=== PATIENT | male | born 1955 | race Caucasian/White ===

== ENCOUNTER 2016-10-19 22:25 | Inpatient (IN) | payer OTHER ==
[~2016-10-19] VITALS: Ht 175.3 cm; Wt 76.9 kg
--- NOTE | 2016-10-19 22:31 | ERA ---
ER Documentation Chief Complaint Date/Time DATE: 10/19/16 TIME: 22:31 Chief Complaint Altered level of consciousness HPI The patient is a 61 years old male, presenting to the ER because of acute altered level of consciousness, recognized by the family around 7 PM. He only knows his name. There was no trauma according to the family. He has not been sick recently. History is obtained from the family. He does not smoke, drink, does not any illegal drug according to the family Past medical history: Hypothyroidism, gastritis Past surgical history: Appendectomy ROS All systems reviewed and are negative except as per history of present illness. Medications Home Meds Reported Medications Levothyroxine Sodium* (Levothyroxine Sodium*) 88 Mcg Tablet, 88 MCG PO BEFORE BREAKFAST, #30 TAB 10/20/16 Omeprazole* (Omeprazole*) 40 Mg Capsule., 40 MG PO BID, #30 CAP 10/19/16 Discontinued Reported Medications Levothyroxine Sodium* (Levothyroxine Sodium*) 75 Mcg Tablet, 75 MCG PO BEFORE BREAKFAST, #30 TAB CHANGED 75MCG TO 88MCG 10/19/16 Allergies Allergies: Coded Allergies: No Known Allergy (Unverified , 10/19/16) Physical Exam Vitals Vital Signs Date Time Temp Pulse Resp B/P Pulse Ox O2 Delivery O2 Flow Rate FiO2 10/20/16 00:38 100 16 122/78 98 Room Air 10/19/16 22:25 98.5 107 18 98/58 99 Physical Exam Const: No acute distress. Dehydrated Head: Atraumatic. Eyes: Normal Conjunctiva. ENT: Normal External Ears, Nose and Mouth. Neck: Full range of motion. No meningismus. Resp: Clear to auscultation bilaterally. Cardio: Regular tachycardic Abd: Soft, non distended, normal bowel sounds, non tender. Skin: No petechiae or rashes. Back: No midline or flank tenderness. Ext: No cyanosis, or edema. Neur: Awake and alert. Limited due to his condition Psych: Limited due to his condition. Result Diagram: 10/19/16221410/19/162214 Results 24 hrs Laboratory Tests Test 10/19/16 22:15 10/19/16 22:42 10/19/16 23:30 10/19/16 23:55 White Blood Count 13.910^3/ul Red Blood Count 5.0110^6/ul Hemoglobin 14.4g/dl Hematocrit 44.8% Mean Corpuscular Volume 89.4fl Mean Corpuscular Hemoglobin 28.7pg Mean Corpuscular Hemoglobin Concent 32.1g/dl Red Cell Distribution Width 13.8% Platelet Count 73585^3/UL Mean Platelet Volume 10.4fl Neutrophils % 66.6% Lymphocytes % 27.9% Monocytes % 4.0% Eosinophils % 0.4% Basophils % 0.3% Nucleated Red Blood Cells % 0.0/100WBC Neutrophils # 9.310^3/ul Lymphocytes # 3.910^3/ul Monocytes # 0.610^3/ul Eosinophils # 0.110^3/ul Basophils # 0.010^3/ul Nucleated Red Blood Cells # 0.010^3/ul Prothrombin Time 13.3Sec Prothrombin Time Ratio 1.0 INR International Normalized Ratio 1.01 Activated Partial Thromboplast Time 27.2Sec Sodium Level 143mmol/L Potassium Level 3.1mmol/L Chloride Level 103mmol/L Carbon Dioxide Level 14mmol/L Anion Gap 29 Blood Urea Nitrogen 16mg/dl Creatinine 1.10mg/dl Glucose Level 193mg/dl Calcium Level 9.2mg/dl Total Bilirubin 0.2mg/dl Direct Bilirubin 0.00mg/dl Indirect Bilirubin 0.2mg/dl Aspartate Amino Transf (AST/SGOT) 22IU/L Alanine Aminotransferase (ALT/SGPT) 17IU/L Alkaline Phosphatase 73IU/L Troponin I < 0.012ng/ml Total Protein 8.4g/dl Albumin 4.9g/dl Globulin 3.50g/dl Albumin/Globulin Ratio 1.40 Thyroid Stimulating Hormone (TSH) 2.630MIU/L Salicylates Level < 1.0mg/dl Acetaminophen Level < 10.0ug/ml Ethyl Alcohol Level < 10.0mg/dl Bedside Glucose 153mg/dL Lactic Acid Level 2.9mmol/L Urine Color LT. YELLOW Urine Clarity CLEAR Urine pH 5.5 Urine Specific [place] >=1.030 Urine Ketones 15 Urine Nitrite NEGATIVE Urine Bilirubin NEGATIVE Urine Urobilinogen 0.2 E.U./dL Urine Leukocyte Esterase NEGATIVE Urine Hemoglobin NEGATIVE Urine Glucose NEGATIVE% Urine Total Protein NEGATIVE Urine Opiates Screen Negative Urine Barbiturates Negative Urine Amphetamines Screen Negative Urine Benzodiazepines Screen Negative Urine Cocaine Screen Negative Urine Cannabinoids Negative Test 10/20/16 00:40 Lactic Acid Level 2.7mmol/L Current Medications Medications (Trade) Dose Ordered Sig/Marino Route PRN Reason Start Time Stop Time Status Last Admin Dose Admin Sodium Chloride 1,000 ml @ 1,000 mls/hr Q1H ONCE IV 10/19/16 23:00 10/19/16 23:59 DC 10/19/16 23:23 Potassium Chloride (KCl 40 MEQ/250 ML NS) 250 ml @ 62.5 mls/hr ONCE ONCE IVPB 10/20/16 00:00 10/20/16 03:59 DC 10/20/16 01:26 Procedures/MDM [place] [address] Radiology Main Line: [phone] DIAGNOSTIC IMAGING REPORT Patient: LUDWIN MACEDO : 1955 Age: 61 Sex: M MR #: [id number] DOS: 10/19/162236 Ordering MD: OMI PHILLIPS MD Location: E/R Room/Bed: PROCEDURE: XR Chest. CLINICAL INDICATION: Altered mental status. Cough. TECHNIQUE: Single frontal view. COMPARISON: None. FINDINGS: The lungs are clear. The heart size is normal. There is no pleural effusion. There is no pneumothorax. IMPRESSION: 1. Normal chest radiograph. RPTAT: QQ .Pb Ortiz MD, MD Date Time Electronically viewed and signed by .Pb Ortiz MD, on 10/19/2016 23:01 .R/ CC: OMI PHILLIPS MD [place] [address] Radiology Main Line: [phone] DIAGNOSTIC IMAGING REPORT Patient: LUDWIN MACEDO : 1955 Age: 61 Sex: M MR #: [id number] DOS: 10/19/162236 Ordering MD: OMI PHILLIPS MD Location: E/R Room/Bed: PROCEDURE: CT head without Contrast CLINICAL INDICATION: Altered mental status TECHNIQUE: Transaxial images were made through the head on a multi-slice scanner without intravenous contrast. Coronal and sagittal images were subsequently reformatted. One or more of the following dose reduction techniques were used: - Automated exposure control. - Adjustment of the mA and/or kV according to patient size. - Use of iterative reconstruction technique. Radiation dose: CTDIvol = 40.21 mGy; DLP = 7 near 68.27 mGy-cm. COMPARISON: None FINDINGS: The calvarium appears intact. The mastoid air cells and paranasal sinuses are well-aerated.. The ventricles are normal in size and there is no midline shift. At the floor of the left frontal lobe there is a 2.5 x 2.4 x 2.3 cm nodular density with surrounding edema. No intracranial bleed or extraaxial fluid collection is evident. IMPRESSION: 1. There is a 2.5 x 2.4 x 2.3 cm nodular density with surrounding edema seen at the floor of the left frontal lobe suspicious for a mass. 2. There is no significant midline shift. 3. No intracranial bleed or extraaxial fluid collection is evident. 4. Correlation with an MRI with and without gadolinium is recommended to further evaluate. Findings of nodular mass with surrounding edema in floor of left frontal lobe were telephoned by Mason Betancourt MD to Dr. Phillips on 10/19/2016 at 2328 hours. Physician Nik Date Time Electronically viewed and signed by Physician Nik on 10/19/2016 23:33 RH/ CC: OMI PHILLIPS MD EKG: Read by emergency physician Rate/Rhythm: Sinus tachycardia 104 beats/min QRS, ST, T-waves: No ST elevation, no T inversion Impression: Abnormal EKG MEDICAL MAKING DECISION: The patient is a 61-year-old male, presenting with acute on the level of consciousness, most likely due to acute brain mass, acute hypokalemia, acute elevated lactic acid level of unclear significance. I do not suspect sepsis in the patient, he was treated with 1 L normal saline for clinical dehydration, 40 mEq potassium chloride IV for low potassium, Decadron 10 mg IV due to acute brain mass with surrounding edema recommended by neurosurgeon Dr. angel The differential diagnoses considered include but are not limited to medication non-compliance, alcohol intoxication or withdrawal, drug intoxication or withdrawal, endocrine disorder, trauma, CVA, tumor, metabolic encephalopathy, septic encephalopathy. Departure Diagnosis: Primary Impression: Brain mass Additional Impressions: Hypokalemia Elevated lactic acid level Condition: Stable Comments Consultation: I discussed the patient with the on-call neurosurgeon Dr. angel , who was made aware of the lab, the patient condition. He accepted the consult at 1255 am I discussed the findings with the patient. I discussed the patient with the on- call hospitalist Dr. Cotton who was made aware of the lab, the treatment, the patient condition. The patient is admitted to telemetry at 1:05 am OMI PHILLIPS MD Oct 19, 2016 22:31
[2016-10-19 22:57] LABS: ADD SCAN DIFF NO
[2016-10-19] MEDS ORDERED: LEVO75TA5 PO (22:57)
[2016-10-19] MEDS ORDERED: SOD CHLORIDE 0.9% 1,000 ML IV ONE (23:00)
--- NOTE | 2016-10-19 23:01 | RADRPT ---
PROCEDURE: XR Chest. CLINICAL INDICATION: Altered mental status. Cough. TECHNIQUE: Single frontal view. COMPARISON: None. FINDINGS: The lungs are clear. The heart size is normal. There is no pleural effusion. There is no pneumothorax. IMPRESSION: 1. Normal chest radiograph. RPTAT: QQ .Pb Ortiz MD, MD Date Time Electronically viewed and signed by .Pb Ortiz MD, on 10/19/2016 23:01 .R/
[2016-10-19 23:02] LABS: BASOPHILS % 0.3 % (0.0-2.0); EOSINOPHILS # 0.1 10^3/ul (0.0-0.5); EOSINOPHILS % 0.4 % (0.0-7.0); HEMATOCRIT 44.8 % (42.0-52.0); HEMOGLOBIN 14.4 g/dl (14.0-18.0); LYMPHOCYTES # 3.9 10^3/ul (0.8-2.9); LYMPHOCYTES % 27.9 % (15.0-51.0); MEAN CORPUSCULAR HEMOGLOBIN 28.7 pg (29.0-33.0); MEAN CORPUSCULAR HGB CONC 32.1 g/dl (32.0-37.0); MEAN CORPUSCULAR VOLUME 89.4 fl (82.0-101.0); MEAN PLATELET VOLUME 10.4 fl (7.4-10.4); MONOCYTE # 0.6 10^3/ul (0.3-0.9); NEUTROPHIL # 9.3 10^3/ul (1.6-7.5); NEUTROPHILS % 66.6 % (39.0-77.0); PLATELET COUNT 339 10^3/UL (140-415); RED BLOOD COUNT 5.01 10^6/ul (4.70-6.10); RED CELL DISTRIBUTION WIDTH 13.8 % (11.5-14.5); WHITE BLOOD COUNT 13.9 10^3/ul (4.8-10.8)
[2016-10-19] MEDS ORDERED: OMEP40CA6 PO (23:04)
[2016-10-19 23:09] LABS: CHLORIDE 103 mmol/L (97-110); INR 1.01; PROTIME 13.3 Sec (12.2-14.2)
[2016-10-19 23:10] LABS: ALBUMIN 4.9 g/dl (3.3-4.9); PARTIAL THROMBOPLASTIN TIME 27.2 Sec (25.0-35.0); POTASSIUM 3.1 mmol/L (3.5-5.1); SODIUM 143 mmol/L (135-144)
[2016-10-19 23:12] LABS: ANION GAP 29 (8-16); BILIRUBIN,INDIRECT 0.2 mg/dl (0-1.1); BILIRUBIN,TOTAL 0.2 mg/dl (0.2-1.3); CARBON DIOXIDE 14 mmol/L (21-31); TOTAL PROTEIN 8.4 g/dl (6.1-8.1)
[2016-10-19 23:13] LABS: ALANINE AMINOTRANSFERASE 17 IU/L (13-69); ALKALINE PHOSPHATASE 73 IU/L (42-121); ASPARTATE AMINO TRANSFERASE 22 IU/L (15-46); BLOOD UREA NITROGEN 16 mg/dl (7-20); CALCIUM 9.2 mg/dl (8.4-10.2); GLUCOSE 193 mg/dl (70-220)
[2016-10-19 23:16] LABS: ACETAMINOPHEN < 10.0 ug/ml (10.0-30.0); ETHANOL < 10.0 mg/dl; SALICYLATE < 1.0 mg/dl (5.0-30.0)
[2016-10-19 23:31] LABS: TROPONIN-I < 0.012 ng/ml (0.00-0.12)
--- NOTE | 2016-10-19 23:33 | RADRPT ---
PROCEDURE: CT head without Contrast CLINICAL INDICATION: Altered mental status TECHNIQUE: Transaxial images were made through the head on a multi-slice scanner without intraveno us contrast. Coronal and sagittal images were subsequently reformatted. One or more of the following dose reduction techniques were used: - Automated exposure control. - Adjustment of the mA and/or kV according to patient size. - Use of iterative reconstruction technique. Radiation dose: CTDIvol = 40.21 mGy; DLP = 7 near 68.27 mGy-cm. COMPARISON: None FINDINGS: The calvarium appears intact. The mastoid air cells and paranasal sinuses are well-aerated.. The ventricles are normal in size and there is no midline shift. At the floor of the left frontal lobe there is a 2.5 x 2.4 x 2.3 cm nodular density with surrounding edema. No intracranial bleed or extraaxial fluid collection is evident. IMPRESSION: 1. There is a 2.5 x 2.4 x 2.3 cm nodular density with surrounding edema seen at the floor of the le ft frontal lobe suspicious for a mass. 2. There is no significant midline shift. 3. No intracranial bleed or extraaxial fluid collection is evident. 4. Correlation with an MRI with and without gadolinium is recommended to further evaluate. Findings of nodular mass with surrounding edema in floor of left frontal lobe were telephoned by Sherita Betancourt MD to Dr. Tran on 10/19/2016 at 2328 hours. Physician Nik Date Time Electronically viewed and signed by Physician Nik on 10/19/2016 23:33 /
[2016-10-20] VITALS (11 sets, daily range): BP systolic 104–127; BP diastolic 63–88; PULSE 78–97; RESP 18–19; BMI 25.0
[2016-10-20] MEDS ORDERED: POTASSIUM CHLORIDE 250 ML IVPB ONE
[2016-10-20 00:21] LABS: ADD UMIC NO; URINE BILIRUBIN (Dip) NEGATIVE (NEGATIVE); URINE BLOOD (Dip) NEGATIVE (NEGATIVE); URINE COLOR LT. YELLOW (YELLOW); URINE GLUCOSE (Dip) NEGATIVE (NEGATIVE); URINE KETONES (Dip) 15 (NEGATIVE); URINE LEUKOCYTE ESTERASE (Dip) NEGATIVE (NEGATIVE); URINE NITRITE (Dip) NEGATIVE (NEGATIVE); URINE TOTAL PROTEIN (Dip) NEGATIVE (NEGATIVE); URINE UROBILINOGEN (Dip) 0.2 E.U./dL (0.1-1.0)
[2016-10-20] MEDS ORDERED: DEXAMETHASONE 10 MG/ML 1 ML INJ IV ONE (01:00)
[2016-10-20 01:25] LABS: BARBITURATES Negative (NEGATIVE); BENZODIAZEPINES Negative (NEGATIVE); CANNABINOIDS Negative (NEGATIVE); COCAINE Negative (NEGATIVE); OPIATES Negative (NEGATIVE)
[2016-10-20] MEDS ORDERED: LEVO88TA3 PO (03:27)
[2016-10-20] MEDS ORDERED: ONDANSETRON 4 MG INJ IV PRN (03:30)
[2016-10-20] MEDS ORDERED: morphine 10 MG INJ IM PRN (03:30)
[2016-10-20] MEDS ORDERED: ACETAMINOPHEN 325 MG TAB PO PRN (03:30)
[2016-10-20 04:25] LABS: ADD SCAN DIFF NO
[2016-10-20 04:39] LABS: ALBUMIN 3.9 g/dl (3.3-4.9)
[2016-10-20 04:40] LABS: POTASSIUM 4.3 mmol/L (3.5-5.1)
[2016-10-20 04:42] LABS: ALBUMIN/GLOBULIN RATIO 1.21; BILIRUBIN,INDIRECT 0.4 mg/dl (0-1.1); BILIRUBIN,TOTAL 0.4 mg/dl (0.2-1.3); CREATININE 0.81 mg/dl (0.61-1.24); TOTAL PROTEIN 7.1 g/dl (6.1-8.1)
[2016-10-20 04:43] LABS: CALCIUM 8.5 mg/dl (8.4-10.2); MAGNESIUM 2.1 mg/dl (1.7-2.5)
[2016-10-20 04:51] LABS: ABNORMAL IP MESSAGE 1; HEMATOCRIT 37.7 % (42.0-52.0); HEMOGLOBIN 13.1 g/dl (14.0-18.0); MEAN CORPUSCULAR HEMOGLOBIN 29.5 pg (29.0-33.0); MEAN CORPUSCULAR HGB CONC 34.7 g/dl (32.0-37.0); MEAN CORPUSCULAR VOLUME 84.9 fl (82.0-101.0); MEAN PLATELET VOLUME 10.1 fl (7.4-10.4); PLATELET COUNT 267 10^3/UL (140-415); RED BLOOD COUNT 4.44 10^6/ul (4.70-6.10); RED CELL DISTRIBUTION WIDTH 13.3 % (11.5-14.5); WHITE BLOOD COUNT 13.3 10^3/ul (4.8-10.8)
[2016-10-20] MEDS: LEVOTHYROXINE 88 MCG TAB PO SCH (06:05)
[2016-10-20] MEDS: PANTOPRAZOLE (EC) 40 MG TAB PO SCH ×2 (06:05→17:02)
[2016-10-20 06:08] LABS: LYMPHOCYTES # 0.7 10^3/ul (0.8-2.9); MONOCYTE # 0.3 10^3/ul (0.3-0.9); NEUTROPHIL # 12.4 10^3/ul (1.6-7.5)
[2016-10-20 06:09] LABS: PLATELET ESTIMATE PLT APPEAR ADEQUATE
[2016-10-20 06:37] LABS: THYROID STIMULATING HORMONE 1.15 MIU/L (0.465-4.680)
--- NOTE | 2016-10-20 07:39 | HP ---
DATE OF ADMISSION: 10/20/2016 CHIEF COMPLAINT: Altered mentation. HISTORY OF PRESENT ILLNESS: The patient is a 61-year-old male with a history of hypothyroidism, gas tritis, parathyroidectomy who was brought to the ER for altered mentation. Last night it was noted by the family that the patient was acting "odd" and was noted to be altered and not responding to f amily appropriately. They reported that during the day he had been lethargic. No reported history o f alcohol or illicit drug use. The patient currently is oriented to his name only. When he presented to the ER, vitals were stable. CT of the brain shows daily a nodular density with surrounding edema at the floor over the left frontal lobe suspicious for masses and it measures 2.5 x 2.4 x 2.3 cm. There is no significant midline shift and no intracranial bleed or extraaxial flu id collection. The patient was given 10 mg of IV Decadron while he was in the ER and a consult was placed to the Onco-neurosurgeon, Dr. Nguyen. REVIEW OF SYSTEMS: Unable to fully assess. PAST MEDICAL HISTORY: As per HPI. PAST SURGICAL HISTORY: Parathyroidectomy, bilateral knee surgery, cholecystectomy and appendectomy. SOCIAL HISTORY: No tobacco, alcohol or illicit drug use. ALLERGIES: NO KNOWN DRUG ALLERGIES. HOME MEDICATIONS: Prilosec and Synthroid. PHYSICAL EXAMINATION: VITAL SIGNS: Stable. GENERAL: The patient appears sleepy, but arousable, in no acute distress. He is only oriented to h is name. HEENT: No obvious head deformity. Pupils reactive to light. Extraocular muscles intact. CARDIOVASCULAR: Slightly tachycardic with regular rhythm. LUNGS: Clear. ABDOMEN: Soft, nontender, normoactive bowel sounds. EXTREMITIES: No edema. NEUROLOGIC: The patient was oriented to his name and actually location as well. LABORATORY DATA: Potassium 3.1, bicarbonate 14, anion gap 29. WBC 13.9. Otherwise, CBC and CMP ar e within normal limits. IMAGING: Brain CT with results as mentioned in the HPI. Chest x-ray shows clear lungs with no effu charu. IMPRESSION: 1. Newly diagnosed brain mass with surrounding edema. 2. Altered level of consciousness secondary to above. 3. Systemic inflammatory response syndrome, as evidenced by leukocytosis and tachycardia, likely se condary to above. 4. History of hypothyroidism. 5. History of gastritis. 6. History of parathyroidectomy. 7. Anion gap metabolic acidosis. 8. Hypokalemia. PLAN: We will admit to telemetry unit. We will obtain MRI of the brain. He will be placed on Deca dron. Currently he is awaiting a neurosurgery evaluation. Would continue his home medication. Giv en his presentation of SIRS, will do infectious workup by sending blood culture and urine culture. Most likely, however, this is the result of the brain mass and is stress-induced. Further workup and management per clinical course. Dictated By: DK RUBALCAVA/CIRILO Conf#: [id number] DID#: [id number]
[2016-10-20] MEDS: DEXAMETHASONE 4 MG/ML 1 ML INJ IV SCH ×3 (07:58→17:02)
--- NOTE | 2016-10-20 13:04 | RADRPT ---
PROCEDURE: MR Brain without contrast. CLINICAL INDICATION: Brain mass seen on CT. TECHNIQUE: An MRI of the brain was performed without contrast utilizing the following sequences: Sagittal T1 weighted, sagittal FLAIR, axial T1, axial FLAIR, axial T2 weighted, axial diffusion weig hted, axial ADC mapping. Images were reviewed on a PACS workstation. COMPARISON: CT head 10/19/2016 FINDINGS: Diffusion weighted sequences demonstrate no evidence of acute lacunar or lobar infarction. There is a prominent mass lesion involving the left anterior frontal lobe, which is partially evaluated. Th e mass measures at least 3.6 x 2.2 cm, with moderate amount of vasogenic edema. There are subtle ar eas of susceptibility hypointensity involving the anterior portion of the mass (GRE image 26). Ther e is diffusion restriction seen within the mass lesion (axial series image 14). Contrast was not ad ministered for enhancement characteristics. There is moderate regional sulcal effacement. There is trace rightward midline shift at the level of the septum pellucidum measuring 2-3 mm. There is no significant subfalcine herniation. The vasogenic edema is seen extending into the anterior genu of the corpus callosum (axial series image 16). The vasogenic edema does not extend across the corpus callosum. There is mild gyral thickening involving the paramedian left frontal lobe (axial series image 17). There is no intraparenchymal hemorrhage, extra-axial fluid collection or hydrocephalous. There is a baseline of mild prominence of the cerebral sulci, lateral and third ventricles. The basal cisterns are patent. Normal flow voids are visible the proximal intracranial arteries and dural sinuses, in dicating patency. The midline structures are intact. The paranasal sinuses, mastoid air cells and middle ear cavities are normally aerated. The orbits, calvarium and extracranial soft tissues are n ormal in appearance. The cerebellopontine angles are normal. No evidence of internal acoustic canal or cerebellopontine angle mass. IMPRESSION: 1. Prominent mass lesion involving the left anterior frontal lobe measuring at least 3.6 x 2.2 cm, with diffusion restriction and multiple foci of hemorrhage. This is concerning for high-grade neopl asm such as glioblastoma multiforme with other etiologies including lymphoma considered less likely. Postcontrast images are recommended for further evaluation. 2. No intraparenchymal hemorrhage, infarction or hydrocephalous. RPTAT: HGAS .Chun Durham MD, MD Date Time Electronically viewed and signed by .Chun Durham MD, MD on 10/20/2016 13:03 .S/
--- NOTE | 2016-10-20 16:00 | CONS ---
Date/Time of Note Date/Time of Note DATE: 10/20/16 TIME: 15:48 Assessment/Plan Assessment/Plan Chief Complaint/Hosp Course 61 yo male who sustained a witnessed seizure who was found with a prominent mass lesion involving the left anterior frontal lobe measuring at least 3.6 x 2.2 cm, concerning for high-grade neoplasm such as glioblastoma multiforme. -will order CT C/A/P with contrast to evaluate for a primary tumor as this brain lesion could represent metastasis from another organ -f/u Brain MRI with contrast -pt to have brain surgery on Saturday or Saturday. will need to f/u pathology as this will dictate our further plan -continue Decadron and Keppra as ordered Problems: Consultation Date/Type/Reason Admit Date/Time Oct 20, 2016 at 00:44 Date of Consultation: Oct 20, 2016 Type of Consultation: oncology Reason for Consultation brain tumor Referring Provider: XAVIER ALSTON of Present Illness 61 yo male with a past medical history of hypothyroidism who presented to the ER after he had a witnessed seizure lasting 15 min resulting in a fall. Pt was brought into our ER after calling 911. In the ER a CT of the brain was done which demonstrated a nodular density with surrounding edema at the floor over the left frontal lobe suspicious for masses and it measures 2.5 x 2.4 x 2.3 cm. There is no significant midline shift and no intracranial bleed or extraaxial fluid collection. The patient was given 10 mg of IV Decadron while he was in the ER. Given the concern for high grade glioblastoma, neurosurgery was called. pt was scheduled for another MRI with contrast and was told he would have surgery on saturday or Saturday. He currently c/o generalized weakness but no focal deficits. He denies weight loss, fevers, chills, nausea or vomiting ,. Constitutional: no complaints Eyes: no complaints ENT: no complaints Respiratory: no complaints Cardiovascular: no complaints Gastrointestinal: no complaints Genitourinary: no complaints Musculoskeletal: no complaints Skin: no complaints Neurologic: no complaints Endocrine: no complaints Past Medical History Parathyroidectomy, bilateral knee surgery, cholecystectomy and appendectomy. Family History Significant Family History: no pertinent family hx Social History Alcohol Use: none Smoking Status: Former smoker Drug Use: none Exam/Review of Systems Vital Signs Vitals Vital Signs Date Time Temp Pulse Resp B/P Pulse Ox O2 Delivery O2 Flow Rate FiO2 4/1/17 15:03 98.6 89 18 116/71 94 10/20/16 02:06 Room Air Intake and Output 10/19/16 10/19/16 10/20/16 15:00 23:00 07:00 Intake Total 250 ml Balance 250 ml Exam Constitutional: alert, oriented Psych: no complaints Head: atraumatic, normocephalic Eyes: nl conjunctiva ENMT: nl external ears & nose Neck: non-tender, supple Respiratory: clear to auscultation, normal air movement Cardiovascular: nl pulses, regular rate and rhythm Gastrointestinal: soft Musculoskeletal: nl extremities to inspection, nl gait and stance Neurological: RESEARCH AND DEVELOPMENT SCIENTIST II-XII intact Results Result Diagram: 10/20/16 0401 10/20/16 0401 Results 24 hrs Laboratory Tests Test 10/19/16 22:15 10/19/16 22:42 10/19/16 23:30 10/19/16 23:55 White Blood Count 13.9 H Red Blood Count 5.01 Hemoglobin 14.4 Hematocrit 44.8 Mean Corpuscular Volume 89.4 Mean Corpuscular Hemoglobin 28.7 L Mean Corpuscular Hemoglobin Concent 32.1 Red Cell Distribution Width 13.8 Platelet Count 339 Mean Platelet Volume 10.4 Neutrophils % 66.6 Lymphocytes % 27.9 Monocytes % 4.0 Eosinophils % 0.4 Basophils % 0.3 Nucleated Red Blood Cells % 0.0 Neutrophils # 9.3 H Lymphocytes # 3.9 H Monocytes # 0.6 Eosinophils # 0.1 Basophils # 0.0 Nucleated Red Blood Cells # 0.0 Prothrombin Time 13.3 Prothrombin Time Ratio 1.0 INR International Normalized Ratio 1.01 Activated Partial Thromboplast Time 27.2 Sodium Level 143 Potassium Level 3.1 L Chloride Level 103 Carbon Dioxide Level 14 L Anion Gap 29 H Blood Urea Nitrogen 16 Creatinine 1.10 Glucose Level 193 Calcium Level 9.2 Total Bilirubin 0.2 Direct Bilirubin 0.00 Indirect Bilirubin 0.2 Aspartate Amino Transf (AST/SGOT) 22 Alanine Aminotransferase (ALT/SGPT) 17 Alkaline Phosphatase 73 Troponin I < 0.012 Total Protein 8.4 H Albumin 4.9 Globulin 3.50 H Albumin/Globulin Ratio 1.40 Thyroid Stimulating Hormone (TSH) 2.630 Salicylates Level < 1.0 L Acetaminophen Level < 10.0 L Ethyl Alcohol Level < 10.0 Bedside Glucose 153 Lactic Acid Level 2.9 H Urine Color LT. YELLOW Urine Clarity CLEAR Urine pH 5.5 Urine Specific [place] >=1.030 H Urine Ketones 15 Urine Nitrite NEGATIVE Urine Bilirubin NEGATIVE Urine Urobilinogen 0.2 E.U./dL Urine Leukocyte Esterase NEGATIVE Urine Hemoglobin NEGATIVE Urine Glucose NEGATIVE Urine Total Protein NEGATIVE Urine Opiates Screen Negative Urine Barbiturates Negative Urine Amphetamines Screen Negative Urine Benzodiazepines Screen Negative Urine Cocaine Screen Negative Urine Cannabinoids Negative Test 10/20/16 00:40 10/20/16 04:01 Lactic Acid Level 2.7 H 0.8 White Blood Count 13.3 H Red Blood Count 4.44 L Hemoglobin 13.1 L Hematocrit 37.7 L Mean Corpuscular Volume 84.9 Mean Corpuscular Hemoglobin 29.5 Mean Corpuscular Hemoglobin Concent 34.7 Red Cell Distribution Width 13.3 Platelet Count 267 # Mean Platelet Volume 10.1 Neutrophils % 93.0 H Lymphocytes % 5.0 L Monocytes % 2.0 Neutrophils # 12.4 H Lymphocytes # 0.7 L Monocytes # 0.3 Differential Comment MANUAL DIFF Platelet Estimate PLT APPEAR ADEQUATE Sodium Level 138 Potassium Level 4.3 Chloride Level 107 Carbon Dioxide Level 23 Anion Gap 12 # Blood Urea Nitrogen 13 Creatinine 0.81 Glucose Level 123 # Calcium Level 8.5 Phosphorus Level 2.0 L Magnesium Level 2.1 Total Bilirubin 0.4 Direct Bilirubin 0.00 Indirect Bilirubin 0.4 Aspartate Amino Transf (AST/SGOT) 22 Alanine Aminotransferase (ALT/SGPT) 28 Alkaline Phosphatase 61 Total Protein 7.1 # Albumin 3.9 # Globulin 3.20 Albumin/Globulin Ratio 1.21 Thyroid Stimulating Hormone (TSH) 1.150 Medications Medications Current Medications Pantoprazole (Protonix Tab) 40 mg BID@06,18 PO Last administered on 10/20/16t 06 :05; Admin Dose 40 MG; Start 10/20/16 at 06:00 Morphine Sulfate (morphine) 2 mg Q4H PRN IM PAIN; Start 10/20/16 at 03:30 Ondansetron HCl (Zofran Inj) 4 mg Q6H PRN IV NAUSEA AND/OR VOMITING; Start 10/20 at 03:30 Acetaminophen (Tylenol Tab) 650 mg Q6H PRN PO PAIN AND OR ELEVATED TEMP; Start 10/20/16 at 03:30 Dexamethasone (Decadron) 4 mg Q6 IV Last administered on 10/20/16t 12:21; Admin Dose 4 MG; Start 10/20/16 at 07:00 Levetiracetam (Keppra) 750 mg BID PO ; Start 10/20/16 at 14:30 KOBE GIVENS M.D. Oct 20, 2016 15:59
--- NOTE | 2016-10-20 16:02 | CONS ---
DATE OF ADMISSION: 10/20/2016 DATE OF CONSULTATION: 10/20/2016 REQUESTING PHYSICIAN: Dr. Phillips. INDICATION FOR CONSULTATION: Brain mass. HISTORY OF PRESENT ILLNESS: The patient is a 61-year-old right-handed male with a history of hypoth yroidism and hyperparathyroidism, who was brought to the emergency room at [facility] after suffering a seizure. The history is obtained from the patient and his and son. The patient was in his usual state of health when he became less responsive and facial making facial grimaces a nd ultimately experienced a generalized tonic-clonic seizure. According to the patient's , thi s lasted about 10 to 15 minutes until paramedics arrived. The patient has not had recurrent seizure s since, and according to the patient's , is neurologically at his baseline. Prior to and subse quent to the seizure, the patient had denied any complaints of headache, nausea, vomiting, numbness, tingling, weakness, speech or cognitive difficulties. The patient has never had a seizure before. CT scan of the brain was performed which showed a left frontal edema suspicious for a mass. There is no evidence of acute blood or intraventricular bleed. The patient was given Decadron. Currently , the patient states that he feels at his normal baseline. REVIEW OF SYSTEMS: A 12-point review of systems was performed. Pertinent positives and negatives l isted in history of present illness and below: CONSTITUTIONAL: The patient denies any recent fevers, chills, or weight loss. HEMATOLOGIC: Denies any history of easy bruising or bleeding. All other systems reviewed and are n egative, except for those listed in the HPI. PAST MEDICAL HISTORY: Hypothyroidism, gastritis, hyperparathyroidism, status post parathyroidectomy . The patient states he was recently seen by his physician and told that he had normal calcium leve ls. PAST SURGICAL HISTORY: Significant for parathyroidectomy performed at [facility], appendectomy performed at [facility] both in the last 2 years, bilateral knee arthroscopy and cholecystectomy. SOCIAL HISTORY: The patient is a nonsmoker and quit about 20 years ago, but he did smoke for about 20 years before that, he only rarely drinks alcohol and denies any history of illicit drug use. 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 ALLERGIES: NO KNOWN DRUG ALLERGIES. HOME MEDICATIONS: 1. Omeprazole. 2. Synthroid. PHYSICAL EXAMINATION: VITAL SIGNS: The patient's temperature 98.4, pulse 97, respirations 18, blood pressure 127/____, sa turating 99% on room air. GENERAL: The patient is a well-developed, well-nourished middle-aged male lying in the hospital bed in no acute distress. HEAD AND NECK: The patient is normocephalic, atraumatic. His neck is supple, he has no Spurling's or weakness Lhermitte sign. CARDIAC: Regular rate and rhythm. VASCULAR: There are 2+ radial and dorsalis pedis pulses. No carotid bruit bilaterally. LUNGS: Clear to auscultation bilaterally. ABDOMEN: Nontender, nondistended, soft. EXTREMITIES: No clubbing, cyanosis, or edema. NEUROLOGIC: The patient is awake, alert, and oriented x3. Speech is fluent. He follows commands r eadily and appropriately. He has normal attention and concentration. He has intact remote, immedia te and recent memory. Cranial nerves II through XII are tested serially tested and are intact, spec ifically II: Visual valencia full to confrontation and normal visual acuity. III, IV and : Extrao cular muscles intact. Pupils equal, round, reactive to light. Cranial nerve V: Normal facial sens ation bilaterally. VII: Face symmetrical dynamically and statically. VIII: Grossly normal audito ry acuity to normal voice and finger rub. IX: Symmetrical palate raise. XI: A 5/5 sternocleidoma stoid and shoulder shrug. XII: No tongue deviation when protruded. His motor exam is 5/5 bilatera l upper and lower extremities. He does not have a pronator drift. Cerebellar: Patient has no atax ia or dysmetria with cpwria-oq-rwtr or lxbnwk-go-sprqos testing. Deep tendon reflexes were 1+ throu ghout with no clonus, Babinski, or Stefan sign. Sensation was intact to light touch and proprioce ption as well as pinprick. Gait not assessed secondary to condition. LABORATORY DATA: The patient's white count today is 13.3, hemoglobin 13.1, platelets 267. His neut rophil percentage is 93, but previously was 66. This was likely indicative of the response to Decad vy. IMAGING: I reviewed the patient's CT of the brain without contrast as well as an MRI of the brain w ithout contrast. The CT of the brain as interpreted by Dr. Mason Betancourt, reveals that there is a 2. 5 x 2.4 x 2.3 cm nodular density with surrounding edema seen on the floor of the left frontal lobe, suspicious for mass. There is no significant midline shift. There is no intracranial bleed or extr aaxial fluid collection evident. Correlation with an MRI with gadolinium was recommended. The MRI was performed, though this was not performed with contrast. The radiologist, Dr. Chun Durham's impression was that there is a prominent mass lesion involving left anterior frontal lobe measuring at least 3.6 x 2.2 cm with diffusion restriction and multiple full size hemorrhage. This was mango rning for a high grade neoplasm such as a glioblastoma, with other etiologies including lymphoma co nsidered less likely and postcontrast images were recommended for further evaluation. ASSESSMENT AND PLAN: A 61-year-old male with left frontal lobe mass and seizures. I discussed wilfred ent's signs, symptoms, physical examination and radiographic findings with the patient and his famil y. I discussed the possible types of lesions stating mainly this was most likely a tumor. I discus sed primary brain tumors, including gliomas the various grades of gliomas, and lymphomas as well as the potential for metastatic disease. Less likely, the patient could have some type of autoimmune i nflammatory response, or less likely, an abscess. The patient should have a metastatic workup. I e xplained that unless there is clearly evidence of systemic disease to suggest this is a metastatic l esion, biopsy and likely debulking and resection will be indicated. I expressed that in the case of lymphoma if this is able to be diagnosed time of surgery, resection would not be necessary. I expl ained that the patient did have seizures and has been placed on anti-seizure medication. I explaine d that surgically debulking may lower the patient's risk of recurrent seizures as well as to give th e diagnosis. I discussed that likely potential adjuvant treatment after surgery including chemother apy and radiation, but I explained that no plan could be made or information given without an actual diagnosis. I discussed surgical treatment, which would likely be a craniotomy rather than a sterot actic biopsy. I discussed the risks, benefits, and alternatives of surgical intervention with the p ethan and his family, including but not limited to infection, osteomyelitis, meningitis, CSF leak, hematoma, neurologic deficit including cognitive motor or speech deficits as well as the risks of ge neral anesthesia including cardiac arrhythmias, pneumonia, prolonged intubation, deep vein thrombosi s, pulmonary emboli, and . The patient will have further radiographic imaging performed and metastatic workup and will be cont inued with Decadron for the edema. The patient was scheduled for surgery once this workup has bee n complete. The patient and his family expressed understanding and agreement with this plan of care . I have spoken to the medical doctor about medical workup and clearance, including metastatic work up. Dictated By: JOVANNI CRENSHAW MD LG/NTS Conf#: [id number] DID#: [id number] CC: OMI PHILLIPS MD;*[facility]*
[2016-10-20] MEDS ORDERED: BARIUM SULF 2% 450 ML BTL (BERRY SMOOTHIE) PO ONE (17:00)
[2016-10-20] MEDS: LEVETIRACETAM 750 MG TAB PO SCH ×2 (17:02→20:55)
--- NOTE | 2016-10-20 17:19 | RADRPT ---
PROCEDURE: MRI Brain without and with contrast. CLINICAL INDICATION: Brain tumor TECHNIQUE: MRI of the brain without and with contrast was performed on a 3.0 T scanner using presur gical planning protocol, with pre and postcontrast T1-weighted sequences obtained. 10 cc Magnevist i ntravenous contrast administered. COMPARISON: MRI brain 10/20/2016 FINDINGS: There is an enhancing focal mass lesion in the anterior - inferior left frontal lobe which measures up to 3.6 x 2.4 x 1.9 cm (AP x transverse x CC) with central areas of nonenhancement suspicious for necrotic changes. Findings of surrounding edema are redemonstrated with associated mass effect and mild rightward midline shift anteriorly measuring approximately 4 mm. Other enhancing intracranial mass lesion or other abnormal parenchymal, leptomeningeal, or dural enhancement is identified. IMPRESSION: Presurgical planning MRI performed demonstrating 3.6 x 2.4 x 1.9 cm enhancing left frontal mass lesi on, suspicious for high-grade neoplasm/glioblastoma multiforme. RPTAT: HESO .Neo Mayorga MD, Date Time Electronically viewed and signed by .Neo Mayorga MD, on 10/20/2016 17:18 .O/
[2016-10-20] MEDS ORDERED: SOD CHLORIDE 0.9% 100 ML ONE (19:15)
[2016-10-20] MEDS ORDERED: IOHEXOL 300MG/ML 150 ML BTL ONE (19:15)
[2016-10-21] VITALS (9 sets, daily range): BP systolic 109–122; BP diastolic 63–77; PULSE 65–80; RESP 18–19
[2016-10-21] MEDS: DEXAMETHASONE 4 MG/ML 1 ML INJ IV SCH ×5 (00:52→23:05)
[2016-10-21 06:15] LABS: ADD SCAN DIFF NO
[2016-10-21] MEDS: LEVOTHYROXINE 88 MCG TAB PO SCH (06:20)
[2016-10-21] MEDS: PANTOPRAZOLE (EC) 40 MG TAB PO SCH ×2 (06:20→18:17)
[2016-10-21 06:35] LABS: BASOPHILS % 0.1 % (0.0-2.0); HEMATOCRIT 39.8 % (42.0-52.0); HEMOGLOBIN 13.2 g/dl (14.0-18.0); LYMPHOCYTES # 0.9 10^3/ul (0.8-2.9); MEAN CORPUSCULAR HEMOGLOBIN 28.6 pg (29.0-33.0); MEAN CORPUSCULAR HGB CONC 33.2 g/dl (32.0-37.0); MEAN CORPUSCULAR VOLUME 86.3 fl (82.0-101.0); MEAN PLATELET VOLUME 10.1 fl (7.4-10.4); MONOCYTE # 0.6 10^3/ul (0.3-0.9); MONOCYTES % 3.4 % (0.0-11.0); NEUTROPHIL # 16.7 10^3/ul (1.6-7.5); PLATELET COUNT 285 10^3/UL (140-415); RED BLOOD COUNT 4.61 10^6/ul (4.70-6.10); RED CELL DISTRIBUTION WIDTH 13.9 % (11.5-14.5); WHITE BLOOD COUNT 18.3 10^3/ul (4.8-10.8)
[2016-10-21 06:40] LABS: CREATININE 0.83 mg/dl (0.61-1.24)
[2016-10-21 06:41] LABS: CALCIUM 9.1 mg/dl (8.4-10.2); PHOSPHORUS 3.1 mg/dl (2.5-4.9)
--- NOTE | 2016-10-21 08:43 | RADRPT ---
PROCEDURE: CT Chest abdomen and pelvis with contrast. CLINICAL INDICATION: Rule out primary carcinoma. TECHNIQUE: CT scan of the chest abdomen pelvis with contrast was performed on a multidetector high -resolution CT scan. The patient was scanned chest abdomen pelvis following the uncomplicated intra venous administration of 100 cc Omnipaque 300. Coronal and sagittal reformatted images were obtained from the axial source images. CT chest abdomen pelvis with contrast protocols were performed. The total exam CTDI equals 14.11 mGy and the total exam DLP equals 1124.02 mGy-cm. One or more of the following dose reduction techniques were used: - Automated exposure control. - Adjustment of the mA and/or kV according to patient size. Use of iterative reconstruction technique. COMPARISON: None. FINDINGS: The heart is within normal limits in size without pericardial effusion. No evidence of pleural effu sions or pneumothoraces. No evidence of mediastinal hilar or axillary lymphadenopathy. There is bi lateral lower lobe atelectasis/chronic interstitial lung disease. There are no pulmonary nodules bi laterally. There are innumerable layering size low density lesions throughout the liver the largest in the left lobe measuring 3.5 cm and in the right lobe 2.8 cm consistent with cysts. There are no solid intra hepatic lesions. Additional small focal fatty sparing involving the subcapsular right lobe of the liver adjacent to the ligamentum teres. Status post cholecystectomy without biliary ductal dilation . The spleen pancreas and adrenal glands are normal in size configuration without focal lesions. T he kidneys are normal in size without calcified calculi. No hydronephrosis bilaterally. There is a pedunculated cyst involving the lateral right mid kidney measuring 3 cm. There is a 0.4 cm low den sity involving the medial superior left kidney too small to characterize but is likely a cyst. In t he lateral inferior left kidney is a 0.6 cm low density lesion too small to characterize but is like ly a cyst. No other intra renal masses bilaterally. The urinary bladder is distended but otherwise unremarkable. The prostate gland is moderately enlarged impressing the floor in her bladder. Surgical changes along the cecum is consistent with previous appendectomy. There is a 3.8 cm long a nnular narrowing of the proximal descending colon with smooth tapering margins that may simply repre sent a region of spasm however a mass in this region cannot be excluded. Colonoscopy is suggested f or further evaluation. Additional mild diverticular changes of the left colon. No CT evidence of d iverticulitis. The colon is otherwise unremarkable. The stomach and small bowel are unremarkable. Negative for intra-abdominal free air, free fluid or lymphadenopathy. There is atherosclerotic vascular disease of the aorta but no evidence of aneurysm or dissection. N o periaortic fluid collections. There is chronic mild to moderate compression fracture of the L2 ve rtebral body. There is degenerative changes of the thoracic and lumbar spine. There are no acute os seous findings. There are no osteoblastic/osteolytic lesions. IMPRESSION: 1. There is a 3.8 cm long annular narrowing in the proximal descending colon with smooth tapering m argins and may simply represent a region of spasm however a mass in this region cannot be excluded. Colonoscopy is suggested. Additional diverticular changes of the left colon but no CT evidence dive rticulitis. 2. No evidence of thoracic abdominopelvic lymphadenopathy. 3. Numerous cysts involving the liver. Additional bilateral renal cysts. 4. No evidence of pulmonary nodules or thoracic effusions. 5. Distended urinary bladder but otherwise unremarkable. Moderate enlargement of the prostate glan d. No obstructive uropathy. 6. Chronic osseous findings as above. RPTAT:AAJJ Physician Carlee Date Time Electronically viewed and signed by Physician Carlee on 10/21/2016 08:42 BM/
[2016-10-21] MEDS: LEVETIRACETAM 750 MG TAB PO SCH ×2 (09:06→20:54)
--- NOTE | 2016-10-21 13:35 | CONS ---
Date/Time of Note Date/Time of Note DATE: 10/21/16 TIME: 13:34 Assessment/Plan Assessment/Plan Chief Complaint/Hosp Course Impression: 1. CT scan showing colon mass 2. left frontal lobe mass and seizures. 3. Anemia 4. h/o gastritis Recommendations: 1. plan for colonoscopy for biopsy of this colon mass if present 2. risks, benefits and alternatives of colonoscopy explained to patient and his . They agreed to proceed with colonoscopy 3. management of brain tumor per primary and other consultants. Problems: Consultation Date/Type/Reason Admit Date/Time Oct 20, 2016 at 00:44 Date of Consultation: Oct 21, 2016 Type of Consultation: GI Reason for Consultation possible colon mass Hx of Present Illness 61-year-old right-handed male with a history of hypothyroidism and hyperparathyroidism, who was admitted for new onset seizure. He was in his usual state of health when he became less responsive and facial making facial grimaces and ultimately experienced a generalized tonic-clonic seizure. According to the patient's , this lasted about 10 to 15 minutes until paramedics arrived. The patient has not had recurrent seizures since, and according to the patient's , is neurologically at his baseline. Prior to and subsequent to the seizure, the patient had denied any complaints of headache , nausea, vomiting, numbness, tingling, weakness, speech or cognitive difficulties. The patient has never had a seizure before. CT scan of the brain was performed which showed a left frontal edema suspicious for a mass. CT of abd/pelvis showed possible colon mass. There is no evidence of acute blood or intraventricular bleed. No melena, BRBPR, coffee ground emesis, or hematemesis. Last colonoscopy was over 10 years ago. all point ros administered, pertinent positives and negatives in HPI otherwise negative. Constitutional: no complaints Eyes: no complaints ENT: no complaints Respiratory: no complaints Cardiovascular: no complaints Gastrointestinal: no complaints Genitourinary: no complaints Musculoskeletal: no complaints Skin: no complaints Neurologic: no complaints Endocrine: no complaints Psychological: no complaints Past Medical History hyperparathyroidism Medical History: GERD, hypothyroid Past Surgical History parathyroidectomy Past Surgical Hx: endoscopy Family History Significant Family History: no pertinent family hx Social History Alcohol Use: none Smoking Status: Current some day smoker Drug Use: none Exam/Review of Systems Vital Signs Vitals Vital Signs Date Time Temp Pulse Resp B/P Pulse Ox O2 Delivery O2 Flow Rate FiO2 4/2/17 12:08 80 10/21/16 12:07 98.3 18 111/71 96 10/20/16 02:06 Room Air Intake and Output 10/20/16 10/20/16 10/21/16 15:00 23:00 07:00 Intake Total 720 ml 420 ml Balance 720 ml 420 ml Exam Constitutional: alert, oriented, well developed Psych: nl mood/affect, no complaints Head: atraumatic, normocephalic Eyes: EOMI, nl conjunctiva, nl lids, nl sclera ENMT: mucosa pink and moist, nl external ears & nose, nl lips & teeth, nl nasal mucosa & septum Neck: non-tender, supple Respiratory: clear to auscultation, normal air movement Cardiovascular: nl pulses, regular rate and rhythm Gastrointestinal: bowel sounds, non-tender, soft Neurological: nl mental status, nl speech, nl strength Results Result Diagram: 10/21/16 0553 10/21/16 0553 Results 24 hrs Laboratory Tests Test 10/21/16 05:53 White Blood Count 18.3 #H Red Blood Count 4.61 L Hemoglobin 13.2 L Hematocrit 39.8 L Mean Corpuscular Volume 86.3 Mean Corpuscular Hemoglobin 28.6 L Mean Corpuscular Hemoglobin Concent 33.2 Red Cell Distribution Width 13.9 Platelet Count 285 Mean Platelet Volume 10.1 Neutrophils % 91.0 H Lymphocytes % 5.0 L Monocytes % 3.4 Eosinophils % 0.0 Basophils % 0.1 Nucleated Red Blood Cells % 0.0 Neutrophils # 16.7 H Lymphocytes # 0.9 Monocytes # 0.6 Eosinophils # 0.0 Basophils # 0.0 Nucleated Red Blood Cells # 0.0 Sodium Level 144 Potassium Level 4.0 Chloride Level 108 Carbon Dioxide Level 24 Anion Gap 16 Blood Urea Nitrogen 17 Creatinine 0.83 Glucose Level 155 Calcium Level 9.1 Phosphorus Level 3.1 Medications Medications Current Medications Pantoprazole (Protonix Tab) 40 mg BID@06,18 PO Last administered on 10/21/16t 06 :20; Admin Dose 40 MG; Start 10/20/16 at 06:00 Morphine Sulfate (morphine) 2 mg Q4H PRN IM PAIN; Start 10/20/16 at 03:30 Ondansetron HCl (Zofran Inj) 4 mg Q6H PRN IV NAUSEA AND/OR VOMITING; Start 10/20 at 03:30 Acetaminophen (Tylenol Tab) 650 mg Q6H PRN PO PAIN AND OR ELEVATED TEMP; Start 10/20/16 at 03:30 Dexamethasone (Decadron) 4 mg Q6 IV Last administered on 10/21/16 12:27; Admin Dose 4 MG; Start 10/20/16 at 07:00 Levetiracetam (Keppra) 750 mg BID PO Last administered on 10/21/16 09:06; Admin Dose 750 MG; Start 10/20/16 at 14:30 CHLOE OCHOA MD Oct 21, 2016 13:35
[2016-10-21] MEDS ORDERED: DIAZEPAM 5 MG TAB PO PRN (15:00)
[2016-10-21] MEDS ORDERED: PEG/ELECTROLYTES 4L BTL PO ONE (15:00)
[2016-10-21] MEDS ORDERED: HYDROCODONE/APAP (5/325) TAB PO PRN ×2 (15:00)
[2016-10-21] MEDS ORDERED: CEPASTAT LOZENGE MT PRN (15:00)
[2016-10-21] MEDS ORDERED: ZOLPIDEM 5 MG TAB PO PRN (15:00)
[2016-10-21] MEDS ORDERED: NALOXONE (0.4 MG/ML) INJ IV PRN (15:00)
[2016-10-21] MEDS ORDERED: DIPHENHYDRAMINE 50 MG CAP PO PRN (15:00)
[2016-10-21] MEDS ORDERED: NACL 0.9% 3 ML SYG IV SCH (15:00)
[2016-10-21] MEDS ORDERED: SOD CHLORIDE 0.45% 1,000 ML IV SCH (15:00)
[2016-10-21] MEDS ORDERED: VANCOMYCIN IV PER PHARMACY XX SCH (15:30)
--- NOTE | 2016-10-21 16:40 | CONS ---
Date/Time of Note Date/Time of Note DATE: 10/21/16 TIME: 16:37 Assessment/Plan Assessment/Plan Chief Complaint/Hosp Course 61 year-old male with left frontal brain tumor. D/w patient. Tumor appears primary rather than met. Given solitary lesion and appearance, recommend OR for biopsy and resection. Questionable colon finding can be scoped in future as brain operation likely of benefit regardless. Discussed risk, benefits and alternatives or surgery with patient and family who elect to proceed. Will be scheduled for OR tomorrow. Con. Mk contGalen martinez. Problems: Consultation Date/Type/Reason Admit Date/Time Oct 20, 2016 at 00:44 Initial Consult Date 10/21/16 Type of Consultation: Neurosurgery Referring Provider: XAVIER ALSTON 24 HR Interval Summary Free Text/Dictation Patient stable. Denies headache, nausea, vomiting, weakness, speech or cognitive difficulties or seizures. Exam/Review of Systems Vital Signs Vitals Vital Signs Date Time Temp Pulse Resp B/P Pulse Ox O2 Delivery O2 Flow Rate FiO2 10/21/16 16:09 98.0 79 18 117/77 96 10/20/16 02:06 Room Air Intake and Output 10/20/16 10/20/16 10/21/16 15:00 23:00 07:00 Intake Total 720 ml 420 ml Balance 720 ml 420 ml Exam Constitutional: alert, oriented, well developed Psych: nl mood/affect, no complaints Head: normocephalic Eyes: EOMI, PERRL, nl conjunctiva Neurological: [employer] INSURANCE AGENT II-XII intact, nl mental status, nl speech, nl strength Results Result Diagram: 10/21/16 0553 10/21/16 0553 Results 24 hrs Laboratory Tests Test 10/21/16 05:53 White Blood Count 18.3 #H Red Blood Count 4.61 L Hemoglobin 13.2 L Hematocrit 39.8 L Mean Corpuscular Volume 86.3 Mean Corpuscular Hemoglobin 28.6 L Mean Corpuscular Hemoglobin Concent 33.2 Red Cell Distribution Width 13.9 Platelet Count 285 Mean Platelet Volume 10.1 Neutrophils % 91.0 H Lymphocytes % 5.0 L Monocytes % 3.4 Eosinophils % 0.0 Basophils % 0.1 Nucleated Red Blood Cells % 0.0 Neutrophils # 16.7 H Lymphocytes # 0.9 Monocytes # 0.6 Eosinophils # 0.0 Basophils # 0.0 Nucleated Red Blood Cells # 0.0 Sodium Level 144 Potassium Level 4.0 Chloride Level 108 Carbon Dioxide Level 24 Anion Gap 16 Blood Urea Nitrogen 17 Creatinine 0.83 Glucose Level 155 Calcium Level 9.1 Phosphorus Level 3.1 Medications Medications Current Medications Pantoprazole (Protonix Tab) 40 mg BID@06,18 PO Last administered on 10/21/16 06 :20; Admin Dose 40 MG; Start 10/20/16 at 06:00 Morphine Sulfate (morphine) 2 mg Q4H PRN IM PAIN; Start 10/20/16 at 03:30 Ondansetron HCl (Zofran Inj) 4 mg Q6H PRN IV NAUSEA AND/OR VOMITING; Start 10/20 at 03:30 Acetaminophen (Tylenol Tab) 650 mg Q6H PRN PO PAIN AND OR ELEVATED TEMP; Start 10/20/16 at 03:30 Dexamethasone (Decadron) 4 mg Q6 IV Last administered on 10/21/16 12:27; Admin Dose 4 MG; Start 10/20/16 at 07:00 Levetiracetam (Keppra) 750 mg BID PO Last administered on 10/21/16 09:06; Admin Dose 750 MG; Start 10/20/16 at 14:30 JOVANNI CRENSHAW MD Oct 21, 2016 16:40
[2016-10-21] MEDS ORDERED: VANCOMYCIN 1.5 GM in SOD CHLORIDE 0.9% 250 ML IVPB SCH (18:00)
[2016-10-21] MEDS ORDERED: CEFAZOLIN 1 GM/50 ML (PMX) 50 ML IVPB SCH (18:00)
--- NOTE | 2016-10-21 18:43 | PN ---
Date/Time of Note Date/Time of Note DATE: 10/21/16 TIME: 18:35 Assessment/Plan VTE Prophylaxis VTE Prophylaxis Intervention: SCD's Lines/Catheters IV C[facility]ter Type (from [facility] Saline Lock Urinary Cath still in place: No Assessment/Plan Chief Complaint/Hosp Course 1. 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 Continue Keppra for seizure prophylaxis Oncology consultation appreciated 2. Acute encephalopathy secondary to above-stable 3. SIRS versus sepsis Blood culture-1 out of 2 does show gram-positive cocci in clusters, follow-up on organism specifics, consider ID consult if this ends up not being contamination started on Vanco 4. History of hypothyroidism continue Synthroid 5. History of gastritis. 6. History of parathyroidectomy. 7. Possible colon mass noted on CT GI consult appreciated, patient may need a colonoscopy for further evaluation during his hospitalization Prophylaxis: SCDs Problems: Subjective 24 Hr Interval Summary Constitutional: no complaints Exam/Review of Systems Vital Signs Vitals Vital Signs Date Time Temp Pulse Resp B/P Pulse Ox O2 Delivery O2 Flow Rate FiO2 10/21/16 16:09 98.0 79 18 117/77 96 10/20/16 02:06 Room Air Intake and Output 10/20/16 10/20/16 10/21/16 15:00 23:00 07:00 Intake Total 720 ml 420 ml Balance 720 ml 420 ml Exam Constitutional: alert Respiratory: clear to auscultation Cardiovascular: regular rate and rhythm Gastrointestinal: soft, No distended Musculoskeletal: nl extremities to inspection Results Result Diagram: 10/21/16 0553 10/21/16 0553 Results 24 hrs Laboratory Tests Test 10/21/16 05:53 White Blood Count 18.3 #H Red Blood Count 4.61 L Hemoglobin 13.2 L Hematocrit 39.8 L Mean Corpuscular Volume 86.3 Mean Corpuscular Hemoglobin 28.6 L Mean Corpuscular Hemoglobin Concent 33.2 Red Cell Distribution Width 13.9 Platelet Count 285 Mean Platelet Volume 10.1 Neutrophils % 91.0 H Lymphocytes % 5.0 L Monocytes % 3.4 Eosinophils % 0.0 Basophils % 0.1 Nucleated Red Blood Cells % 0.0 Neutrophils # 16.7 H Lymphocytes # 0.9 Monocytes # 0.6 Eosinophils # 0.0 Basophils # 0.0 Nucleated Red Blood Cells # 0.0 Sodium Level 144 Potassium Level 4.0 Chloride Level 108 Carbon Dioxide Level 24 Anion Gap 16 Blood Urea Nitrogen 17 Creatinine 0.83 Glucose Level 155 Calcium Level 9.1 Phosphorus Level 3.1 Medications Medications Current Medications Pantoprazole (Protonix Tab) 40 mg BID@06,18 PO Last administered on 10/21/16 18 :17; Admin Dose 40 MG; Start 10/20/16 at 06:00 Morphine Sulfate (morphine) 2 mg Q4H PRN IM PAIN; Start 10/20/16 at 03:30 Ondansetron HCl (Zofran Inj) 4 mg Q6H PRN IV NAUSEA AND/OR VOMITING; Start 10/20 at 03:30 Acetaminophen (Tylenol Tab) 650 mg Q6H PRN PO PAIN AND OR ELEVATED TEMP; Start 10/20/16 at 03:30 Dexamethasone (Decadron) 4 mg Q6 IV Last administered on 10/21/16 18:17; Admin Dose 4 MG; Start 10/20/16 at 07:00 Levetiracetam 750 mg 750 mg BID PO Last administered on 10/21/16 09:06; Admin Dose 750 MG; Start 10/20/16 at 14:30 Cefazolin Sodium/ Dextrose 50 ml @ 100 mls/hr ONCE ONCE IVPB ; Start 10/21/16 at 17:00; Stop 10/21/16 at 17:29; Status UNV Vancomycin HCl 1.5 gm/Sodium Chloride 250 ml @ 83.333 mls/ hr ONCE IVPB Last administered on 10/21/16 18:12; Admin Dose 83.333 MLS/HR; Start 10/21/16 at 18:00 ; Stop 10/21/16 at 21:00 Vancomycin HCl (Vancocin) 250 ml @ 125 mls/hr Q12H IVPB ; Start 10/22/16 at 06: 00 XAVIER ALSTON Oct 21, 2016 18:43
[2016-10-22] VITALS (28 sets, daily range): BP systolic 101–144; BP diastolic 59–102; PULSE 54–90; RESP 13–20
[2016-10-22] MEDS ORDERED: CEFAZOLIN 2 GM/50 ML (PMX) 50 ML IVPB ONE (06:30)
[2016-10-22] MEDS: DEXAMETHASONE 4 MG/ML 1 ML INJ IV SCH ×3 (06:57→21:45)
[2016-10-22] MEDS: PANTOPRAZOLE (EC) 40 MG TAB PO SCH ×2 (06:57→21:35)
[2016-10-22] MEDS: LEVOTHYROXINE 88 MCG TAB PO SCH ×2 (06:57→21:30)
[2016-10-22] MEDS: VANCOMYCIN 1 GM in NS 250 ML IVPB SCH ×2 (06:58→21:37)
[2016-10-22] MEDS ORDERED: DOCUSATE SODIUM 100 MG CAP PO SCH (09:00)
[2016-10-22] MEDS: LEVETIRACETAM 750 MG TAB PO SCH ×2 (09:00→20:56)
[2016-10-22 10:51] LABS: ADD SCAN DIFF NO
--- NOTE | 2016-10-22 10:52 | CONS ---
Date/Time of Note Date/Time of Note DATE: 10/22/16 TIME: 10:52 Assessment/Plan Assessment/Plan Chief Complaint/Hosp Course Impression: 1. CT scan showing colon mass 2. left frontal lobe mass and seizures. 3. Anemia 4. h/o gastritis Recommendations: 1. will hold colonoscopy per discussion with neurosurgery toy consultant. Neurosurgery wants to do craniotomy as there is low likelihood that the brain tumor is a met from colon. 2. colonoscopy when patient stable to do so after his neurosurgery 3. Dr. Adames to resume care of this patient tomorrow Problems: Consultation Date/Type/Reason Admit Date/Time Oct 20, 2016 at 00:44 Initial Consult Date 10/21/16 Type of Consultation: GI Referring Provider: XAVIER ALSTON 24 HR Interval Summary Free Text/Dictation awaiting neurosurgery. colonoscopy canceled due to his scheduled neurosurgery. no n/v Exam/Review of Systems Vital Signs Vitals Vital Signs Date Time Temp Pulse Resp B/P Pulse Ox O2 Delivery O2 Flow Rate FiO2 10/22/16 07:40 98.0 64 18 127/71 97 10/20/16 02:06 Room Air Intake and Output 10/21/16 10/21/16 10/22/16 15:00 23:00 07:00 Intake Total 1150 ml Balance 1150 ml Exam Constitutional: alert, oriented, well developed Psych: anxiety Head: atraumatic, normocephalic Eyes: EOMI, nl conjunctiva, nl lids, nl sclera ENMT: mucosa pink and moist, nl external ears & nose, nl lips & teeth, nl nasal mucosa & septum Neck: non-tender, supple Respiratory: clear to auscultation, normal air movement Cardiovascular: nl pulses, regular rate and rhythm Gastrointestinal: bowel sounds, non-tender, soft Results Result Diagram: 10/21/16 0553 10/21/16 0553 Medications Medications Current Medications Pantoprazole (Protonix Tab) 40 mg BID@06,18 PO Last administered on 10/22/16t 06 :57; Admin Dose 40 MG; Start 10/20/16 at 06:00 Morphine Sulfate (morphine) 2 mg Q4H PRN IM PAIN; Start 10/20/16 at 03:30 Ondansetron HCl (Zofran Inj) 4 mg Q6H PRN IV NAUSEA AND/OR VOMITING; Start 10/20 at 03:30 Acetaminophen (Tylenol Tab) 650 mg Q6H PRN PO PAIN AND OR ELEVATED TEMP; Start 10/20/16 at 03:30 Dexamethasone (Decadron) 4 mg Q6 IV Last administered on 10/22/16 06:57; Admin Dose 4 MG; Start 10/20/16 at 07:00 Levetiracetam 750 mg 750 mg BID PO Last administered on 10/21/16 20:54; Admin Dose 750 MG; Start 10/20/16 at 14:30 Vancomycin HCl (Vancocin) 250 ml @ 125 mls/hr Q12H IVPB Last administered on 06:58; Admin Dose 125 MLS/HR; Start 10/22/16 at 06:00 CHLOE OCHOA MD Oct 22, 2016 10:52
[2016-10-22 10:55] LABS: BASOPHILS % 0.1 % (0.0-2.0); HEMATOCRIT 39.4 % (42.0-52.0); HEMOGLOBIN 13.5 g/dl (14.0-18.0); LYMPHOCYTES # 0.8 10^3/ul (0.8-2.9); LYMPHOCYTES % 5.3 % (15.0-51.0); MEAN CORPUSCULAR HEMOGLOBIN 29.5 pg (29.0-33.0); MEAN CORPUSCULAR HGB CONC 34.3 g/dl (32.0-37.0); MEAN PLATELET VOLUME 10.2 fl (7.4-10.4); MONOCYTE # 0.4 10^3/ul (0.3-0.9); MONOCYTES % 2.8 % (0.0-11.0); NEUTROPHIL # 14.5 10^3/ul (1.6-7.5); NEUTROPHILS % 91.3 % (39.0-77.0); PLATELET COUNT 300 10^3/UL (140-415); RED BLOOD COUNT 4.58 10^6/ul (4.70-6.10); RED CELL DISTRIBUTION WIDTH 13.5 % (11.5-14.5); WHITE BLOOD COUNT 15.8 10^3/ul (4.8-10.8)
[2016-10-22 11:11] LABS: CALCIUM 9.1 mg/dl (8.4-10.2); CREATININE 0.78 mg/dl (0.61-1.24); POTASSIUM 3.8 mmol/L (3.5-5.1)
--- NOTE | 2016-10-22 11:51 | PN ---
Date/Time of Note Date/Time of Note DATE: 10/22/16 TIME: 11:48 Assessment/Plan VTE Prophylaxis VTE Prophylaxis Intervention: SCD's Lines/Catheters IV C[facility]ter Type (from [facility] Saline Lock Urinary Cath still in place: No Assessment/Plan Assessment/Plan 1. 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 Acute encephalopathy secondary to above-stable 3. SIRS versus sepsis Blood culture-1 out of 2 does show gram-positive cocci in clusters, follow-up on organism specifics, consider ID consult if this ends up not being contamination started on Vanco 4. History of hypothyroidism continue Synthroid 5. History of gastritis. 6. History of parathyroidectomy. 7. Possible colon mass noted on CT GI consult appreciated, patient may need a colonoscopy for further evaluation during his hospitalization Prophylaxis: SCDs Subjective 24 Hr Interval Summary Free Text/Dictation no acute events, plan for neurosurgery today Exam/Review of Systems Vital Signs Vitals Vital Signs Date Time Temp Pulse Resp B/P Pulse Ox O2 Delivery O2 Flow Rate FiO2 10/22/16 07:40 98.0 64 18 127/71 97 10/20/16 02:06 Room Air Intake and Output 10/21/16 10/21/16 10/22/16 15:00 23:00 07:00 Intake Total 1150 ml Balance 1150 ml Exam Constitutional: alert Respiratory: clear to auscultation Cardiovascular: regular rate and rhythm Gastrointestinal: soft, No distended Musculoskeletal: nl extremities to inspection Results Result Diagram: 10/22/16 1009 10/22/16 1009 Results 24 hrs Laboratory Tests Test 10/22/16 10:09 White Blood Count 15.8 H Red Blood Count 4.58 L Hemoglobin 13.5 L Hematocrit 39.4 L Mean Corpuscular Volume 86.0 Mean Corpuscular Hemoglobin 29.5 Mean Corpuscular Hemoglobin Concent 34.3 Red Cell Distribution Width 13.5 Platelet Count 300 Mean Platelet Volume 10.2 Neutrophils % 91.3 H Lymphocytes % 5.3 L Monocytes % 2.8 Eosinophils % 0.0 Basophils % 0.1 Nucleated Red Blood Cells % 0.0 Neutrophils # 14.5 H Lymphocytes # 0.8 Monocytes # 0.4 Eosinophils # 0.0 Basophils # 0.0 Nucleated Red Blood Cells # 0.0 Sodium Level 144 Potassium Level 3.8 Chloride Level 105 Carbon Dioxide Level 25 Anion Gap 18 H Blood Urea Nitrogen 18 Creatinine 0.78 Glucose Level 122 Calcium Level 9.1 Medications Medications Current Medications Pantoprazole (Protonix Tab) 40 mg BID@06,18 PO Last administered on 10/22/16 06 :57; Admin Dose 40 MG; Start 10/20/16 at 06:00 Morphine Sulfate (morphine) 2 mg Q4H PRN IM PAIN; Start 10/20/16 at 03:30 Ondansetron HCl (Zofran Inj) 4 mg Q6H PRN IV NAUSEA AND/OR VOMITING; Start 10/20 at 03:30 Acetaminophen (Tylenol Tab) 650 mg Q6H PRN PO PAIN AND OR ELEVATED TEMP; Start 10/20/16 at 03:30 Dexamethasone (Decadron) 4 mg Q6 IV Last administered on 10/22/16 11:37; Admin Dose 4 MG; Start 10/20/16 at 07:00 Levetiracetam 750 mg 750 mg BID PO Last administered on 10/21/16 20:54; Admin Dose 750 MG; Start 10/20/16 at 14:30 Vancomycin HCl (Vancocin) 250 ml @ 125 mls/hr Q12H IVPB Last administered on 06:58; Admin Dose 125 MLS/HR; Start 10/22/16 at 06:00 Miscellaneous Information (*Rx Drug Level Order Reminder*) VANCOMYCIN TROUGH 10/23 AT 0500 ONCE ONCE XX ; Start 10/23/16 at 05:00; Stop 10/23/16 at 05:01 MONTRELL EPSTEIN MD Oct 22, 2016 11:51
--- NOTE | 2016-10-22 11:54 | CONS ---
Date/Time of Note Date/Time of Note DATE: 10/22/16 TIME: 11:49 Assessment/Plan Assessment/Plan Chief Complaint/Hosp Course 61 yo male who sustained a witnessed seizure who was found with a prominent mass lesion involving the left anterior frontal lobe measuring at least 3.6 x 2.2 cm, concerning for high-grade neoplasm such as glioblastoma multiforme. CT C /A/P demonstrated 3.8 cm long annular narrowing in the proximal descending colon that might represent a colon malignancy. Given the appearance of the brain tumor, however, I agree this should be resected regardless of what is found in the colon as patient may have to separate processes going on . -proceed with craniotomy and brain tumor resection today -after the surgery will proceed with GI workup to evaluate for GI malignancy -further recommendations will depend on the pathology result from the brain tumor -continue Luis and Mk as ordered Problems: Consultation Date/Type/Reason Admit Date/Time Oct 20, 2016 at 00:44 Initial Consult Date 10/21/16 Type of Consultation: hematology Reason for Consultation Brain Tumor Referring Provider: XAVIER ALSTON 24 HR Interval Summary Free Text/Dictation pt is ready for surgery today. no seizures, no headaches Exam/Review of Systems Vital Signs Vitals Vital Signs Date Time Temp Pulse Resp B/P Pulse Ox O2 Delivery O2 Flow Rate FiO2 10/22/16 07:40 98.0 64 18 127/71 97 10/20/16 02:06 Room Air Intake and Output 10/21/16 10/21/16 10/22/16 15:00 23:00 07:00 Intake Total 1150 ml Balance 1150 ml Exam Constitutional: alert, oriented Psych: no complaints Head: atraumatic, normocephalic Eyes: nl conjunctiva ENMT: nl external ears & nose Neck: supple Respiratory: clear to auscultation, normal air movement Cardiovascular: regular rate and rhythm Gastrointestinal: soft Musculoskeletal: nl extremities to inspection, nl gait and stance Results Result Diagram: 10/22/16 1009 10/22/16 1009 Results 24 hrs Laboratory Tests Test 10/22/16 10:09 White Blood Count 15.8 H Red Blood Count 4.58 L Hemoglobin 13.5 L Hematocrit 39.4 L Mean Corpuscular Volume 86.0 Mean Corpuscular Hemoglobin 29.5 Mean Corpuscular Hemoglobin Concent 34.3 Red Cell Distribution Width 13.5 Platelet Count 300 Mean Platelet Volume 10.2 Neutrophils % 91.3 H Lymphocytes % 5.3 L Monocytes % 2.8 Eosinophils % 0.0 Basophils % 0.1 Nucleated Red Blood Cells % 0.0 Neutrophils # 14.5 H Lymphocytes # 0.8 Monocytes # 0.4 Eosinophils # 0.0 Basophils # 0.0 Nucleated Red Blood Cells # 0.0 Sodium Level 144 Potassium Level 3.8 Chloride Level 105 Carbon Dioxide Level 25 Anion Gap 18 H Blood Urea Nitrogen 18 Creatinine 0.78 Glucose Level 122 Calcium Level 9.1 Medications Medications Current Medications Pantoprazole (Protonix Tab) 40 mg BID@06,18 PO Last administered on 10/22/16 06 :57; Admin Dose 40 MG; Start 10/20/16 at 06:00 Morphine Sulfate (morphine) 2 mg Q4H PRN IM PAIN; Start 10/20/16 at 03:30 Ondansetron HCl (Zofran Inj) 4 mg Q6H PRN IV NAUSEA AND/OR VOMITING; Start 10/20 at 03:30 Acetaminophen (Tylenol Tab) 650 mg Q6H PRN PO PAIN AND OR ELEVATED TEMP; Start 10/20/16 at 03:30 Dexamethasone (Decadron) 4 mg Q6 IV Last administered on 10/22/16 11:37; Admin Dose 4 MG; Start 10/20/16 at 07:00 Levetiracetam 750 mg 750 mg BID PO Last administered on 10/21/16 20:54; Admin Dose 750 MG; Start 10/20/16 at 14:30 Vancomycin HCl (Vancocin) 250 ml @ 125 mls/hr Q12H IVPB Last administered on 06:58; Admin Dose 125 MLS/HR; Start 10/22/16 at 06:00 Miscellaneous Information (*Rx Drug Level Order Reminder*) VANCOMYCIN TROUGH 10/23 AT 0500 ONCE ONCE XX ; Start 10/23/16 at 05:00; Stop 10/23/16 at 05:01 KOBE GIVENS M.D. Oct 22, 2016 11:53
[2016-10-22] MEDS ORDERED: GELATIN SIZE 100 SPONGE ONE (15:00)
[2016-10-22] MEDS ORDERED: LIDOCAINE 0.5%/EPI (MDV) 50 ML INJ ONE (15:00)
[2016-10-22] MEDS ORDERED: BACITRACIN/POLYMYXIN 28.35 GM OINT TOP ONE (15:00)
[2016-10-22] MEDS ORDERED: THROMBIN 5000 UNIT VIAL ONE ×2 (15:00→16:48)
--- NOTE | 2016-10-22 15:09 | CONS ---
Date/Time of Note Date/Time of Note DATE: 10/22/16 TIME: 15:08 Assessment/Plan Assessment/Plan Chief Complaint/Hosp Course 61 year-old male with left frontal brain tumor. OR today for craniotomy. Problems: Consultation Date/Type/Reason Admit Date/Time Oct 20, 2016 at 00:44 Initial Consult Date 10/21/16 Type of Consultation: Neurosurgery Referring Provider: XAVIER ALSTON 24 HR Interval Summary Free Text/Dictation Patient doing well. Denies headache, nausea, vomiting, weakness, or seizures. Has had some hiccups. Exam/Review of Systems Vital Signs Vitals Vital Signs Date Time Temp Pulse Resp B/P Pulse Ox O2 Delivery O2 Flow Rate FiO2 10/22/16 14:19 97.9 68 19 138/79 96 Room Air Intake and Output 10/21/16 10/21/16 10/22/16 15:00 23:00 07:00 Intake Total 1150 ml Balance 1150 ml Exam Constitutional: alert, oriented, well developed Psych: no complaints Head: atraumatic, normocephalic Eyes: EOMI, PERRL Neurological: POLE FRAMER II-XII intact, nl mental status, nl speech, nl strength Results Result Diagram: 10/22/16 1009 10/22/16 1009 Results 24 hrs Laboratory Tests Test 10/22/16 10:09 White Blood Count 15.8 H Red Blood Count 4.58 L Hemoglobin 13.5 L Hematocrit 39.4 L Mean Corpuscular Volume 86.0 Mean Corpuscular Hemoglobin 29.5 Mean Corpuscular Hemoglobin Concent 34.3 Red Cell Distribution Width 13.5 Platelet Count 300 Mean Platelet Volume 10.2 Neutrophils % 91.3 H Lymphocytes % 5.3 L Monocytes % 2.8 Eosinophils % 0.0 Basophils % 0.1 Nucleated Red Blood Cells % 0.0 Neutrophils # 14.5 H Lymphocytes # 0.8 Monocytes # 0.4 Eosinophils # 0.0 Basophils # 0.0 Nucleated Red Blood Cells # 0.0 Sodium Level 144 Potassium Level 3.8 Chloride Level 105 Carbon Dioxide Level 25 Anion Gap 18 H Blood Urea Nitrogen 18 Creatinine 0.78 Glucose Level 122 Calcium Level 9.1 Medications Medications Current Medications Pantoprazole (Protonix Tab) 40 mg BID@06,18 PO Last administered on 10/22/16t 06 :57; Admin Dose 40 MG; Start 10/20/16 at 06:00 Morphine Sulfate (morphine) 2 mg Q4H PRN IM PAIN; Start 10/20/16 at 03:30 Ondansetron HCl (Zofran Inj) 4 mg Q6H PRN IV NAUSEA AND/OR VOMITING; Start 10/20 at 03:30 Acetaminophen (Tylenol Tab) 650 mg Q6H PRN PO PAIN AND OR ELEVATED TEMP; Start 10/20/16 at 03:30 Dexamethasone (Decadron) 4 mg Q6 IV Last administered on 10/22/16 11:37; Admin Dose 4 MG; Start 10/20/16 at 07:00 Levetiracetam 750 mg 750 mg BID PO Last administered on 10/21/16 20:54; Admin Dose 750 MG; Start 10/20/16 at 14:30 Vancomycin HCl (Vancocin) 250 ml @ 125 mls/hr Q12H IVPB Last administered on 06:58; Admin Dose 125 MLS/HR; Start 10/22/16 at 06:00 Miscellaneous Information (*Rx Drug Level Order Reminder*) VANCOMYCIN TROUGH 10/23 AT 0500 ONCE ONCE XX ; Start 10/23/16 at 05:00; Stop 10/23/16 at 05:01 JOVANNI CRENSHAW MD Oct 22, 2016 15:09
[2016-10-22] MEDS ORDERED: FENTAnyl 50 MCG/ML VIAL ONE ×2 (15:20→16:36)
[2016-10-22] MEDS ORDERED: CEFAZOLIN 1 GM INJ ONE (16:36)
[2016-10-22] MEDS ORDERED: ROCURONIUM 50 MG INJ ONE ×2 (16:36)
[2016-10-22] MEDS ORDERED: SUCCINYLCHOLINE CHLORIDE 100 MG/5 ML SYG IV ONE (16:36)
[2016-10-22] MEDS ORDERED: NEOSTIGMINE 3 MG/3 ML SYRINGE ONE (16:36)
[2016-10-22] MEDS ORDERED: PROPOFOL 40 ML ONE (16:36)
[2016-10-22] MEDS ORDERED: LIDOCAINE 2% (SDV) 5 ML INJ ONE (16:36)
[2016-10-22] MEDS ORDERED: GLYCOPYRROLATE 1 MG INJ ONE (16:36)
[2016-10-22] MEDS ORDERED: POLYMYXIN/BACITRACIN 1L IRRIG IRR ONE (17:04)
[2016-10-22] MEDS ORDERED: HEMOSTATIC MATRIX/ THROMBIN 1 EA SYG ZFS ONE (17:05)
[2016-10-22] MEDS ORDERED: GELATIN SIZE 100 SPONGE TOP ONE (17:06)
[2016-10-22] MEDS ORDERED: DIPHENHYDRAMINE 50 MG INJ IV PRN (17:30)
[2016-10-22] MEDS ORDERED: HYDROmorphONE (0.2 MG/ML) 10ML SYG IV PRN ×3 (17:30)
[2016-10-22] MEDS ORDERED: MEPERIDINE 25 MG INJ IV PRN (17:30)
[2016-10-22] MEDS ORDERED: FENTAnyl 50 MCG/ML VIAL IV PRN ×2 (17:30)
[2016-10-22] MEDS ORDERED: niCARdipine-D5W 0.1MG/ML DRIP 200 ML IV SCH (18:30)
[2016-10-22] MEDS: SOD CHLORIDE 0.9% 1,000 ML IV SCH (20:06)
--- NOTE | 2016-10-22 20:17 | OPR ---
Date/Time of Note Date/Time of Note DATE: 10/22/16 TIME: 20:14 Operative Report Preoperative Diagnosis 1. left frontal tumor. Postoperative Diagnosis 1. left frontal tumor. Operation Performed 1. left frontal craniotomy for biopsy and resection of tumor. Surgeon: JOVANNI CRENSHAW MD Anesthesia: general Anesthesiologist: MARLYN OROPEZA Estimated Blood Loss: 150 - 200 ml's Specimens TUMOR FROZEN C/W HIGH GRADE GLIOMA Tubes/Drains SUBGALEAL HENRY Complications: None Pt Condition Post Procedure: stable Disposition: PACU JOVANNI CRENSHAW MD Oct 22, 2016 20:17
[2016-10-22] MEDS ORDERED: BISACODYL 10 MG SUPP PR PRN (20:30)
[2016-10-22] MEDS ORDERED: morphine 2 MG INJ IV PRN (20:30)
[2016-10-22] MEDS ORDERED: HYDROCODONE/APAP (5/325) TAB PO PRN (20:30)
[2016-10-22] MEDS ORDERED: CEPASTAT LOZENGE MT PRN (20:30)
[2016-10-22] MEDS ORDERED: SENNA/DOCUSATE NA (8.6MG/50MG) TAB PO PRN (20:30)
[2016-10-22] MEDS: CEFAZOLIN 2 GM/50 ML (PMX) 50 ML IVPB SCH (21:00)
[2016-10-22] MEDS: DOCUSATE SODIUM 100 MG CAP PO SCH (21:31)
--- NOTE | 2016-10-22 23:46 | OPR ---
DATE OF OPERATION: 10/22/2016 PREOPERATIVE DIAGNOSIS: Left frontal tumor. POSTOPERATIVE DIAGNOSIS: Left frontal tumor. PROCEDURE: 1. Left frontal craniotomy for biopsy and resection of tumor. 2. Use of computerized frameless stereotactic navigation. 3. Use of operative microscope for intraoperative microdissection. SURGEON: Dr. Jovanni Nguyen SECURITY CLERK: None. ANESTHESIOLOGIST: Jermaine rS MD ANESTHESIA: General. ESTIMATED BLOOD LOSS: 150 mL. SPECIMEN: Tumor. FINDINGS: Primary brain tumor. DRAINS: One subgaleal HENRY. COMPLICATIONS: None. DISPOSITION: PACU. INDICATIONS: The patient is a 61-year-old male who had new onset general tonic- clonic seizure. MRI showed an enhancing left frontal lesion, most likely consistent with a primary glioma. The risks, benefits, and alternatives of surgical intervention were discussed with patient, electing surgery. DESCRIPTION OF PROCEDURE: The patient was seen in the preoperative area and the risks, benefits, and alternatives were discussed again with the patient. He was marked on the left side, which corresponded with the radiographic location of the tumor. The patient was taken to the OR. He was sedated, intubated, and anesthesia was successfully induced. The patient was placed in the supine position on the operative table and placed in Wolfe 3-point fixation. The [place] frame was then secured to the bed. The BrainLAB was then registered and showed good correlation with real world localization. Perioperative antibiotics were given. A Medina catheter was placed. Sequential compressive devices were placed. The patient was sterilely prepped and draped. After surgical time-out, the procedure commenced. A partial bicoronal incision was made with a 10 blade knife. Bovie electrocautery was used to dissect through the subcutaneous tissue and galea down to the pericranial layer. The pericranial layer was from the myocutaneous flap, which was reflected anteriorly. The pericranial flap was then reflected from the skull to be used in case of violation of the sinus. The BrainLAB was used to localize the tumor. A low frontal approach was performed. A bur hole was used to make 3 bur holes, 2 medial next to midline and 1 laterally. The bone flap was then turned with a craniotome. The dura was then opened with the pedicle towards the sinus. The BrainLAB was then used to localize the tumor. Using a BrainLAB guided stylet, 3 ventricular catheters were advanced to localize width, depth, and the height of the tumor. A corticectomy was then made and operative microscope was brought in for intraoperative microdissection. Dissection was carried inferiorly until there appeared to be some abnormal slightly caseous tissue. This was sent for frozen pathology and determined by pathologist to be consistent with high-grade glioma. There was evidence of necrosis as well. Given that the lesion was likely GBM and given the left frontal area, aggressive resection was performed. Using suction and coagulation, the tumor was removed in a radial fashion. There appeared to be more of a brownish reddish hue tissue with vascularity. This was resected until what appeared to be grossly normal white matter was seen. The resection was carried to the depth of ventricular catheters and laterally and these were then removed. Next, further dissection was performed to remove any additional grossly abnormal tissue and this was carried forth until there appeared to be no significant bleeding. Again, the extent of tumor resection was evaluated with the BrainLAB and there appeared to be a good 1 to 2 cm margin and gross resection of greater than 90% of the tumor. Hemostasis was achieved with bipolar electrocautery. Multiple rounds of irrigation were performed until this came back clean. Hydrogen peroxide soaked pledgets were placed in the incision as well as Surgifoam and these were then removed. The wound was again copiously irrigated with bacitracin irrigation. There was no evidence of bleeding, even after two Valsalva maneuvers were performed. Surgicel was placed in the resection cavity. The dura was then closed with interrupted Nurolon sutures and a piece of Duragen placed over the dura. The bone flap was then replaced with Chriss titanium plates and screws. The pericranium was then closed and then the myocutaneous flap was closed with 2-0 Vicryl sutures in the galea and delores in the skin. A 7-[place]izen [place] round Yash-Asencio drain had been placed on the incision and secured at the surface. This was connected to the suction bulb. Dermabond was placed over the delores and a sterile dressing applied. The patient was taken off the table, extubated, and taken to recovery. Sponge , needle, and cottonoid count were reported correct at the end of the case. Dictated By: JOVANNI NGUYEN MD, LG/CIRILO Conf#: [id number] DID#: [id number] [facility]
[2016-10-23] VITALS (53 sets, daily range): BP systolic 102–128; BP diastolic 48–74; PULSE 52–64; RESP 7–20; Ht 175.3 cm; Wt 76.9 kg
[2016-10-23] MEDS: DEXAMETHASONE 4 MG/ML 1 ML INJ IV SCH ×3 (05:44→12:00)
[2016-10-23] MEDS: CEFAZOLIN 2 GM/50 ML (PMX) 50 ML IVPB SCH ×2 (05:44→12:30)
[2016-10-23] MEDS: PANTOPRAZOLE (EC) 40 MG TAB PO SCH ×2 (05:50→17:09)
[2016-10-23] MEDS: SOD CHLORIDE 0.9% 1,000 ML IV SCH ×2 (06:06→12:00)
--- NOTE | 2016-10-23 07:23 | RADRPT ---
PROCEDURE: CT Brain without contrast. CLINICAL INDICATION: Neurologic deficit TECHNIQUE: A CT of the brain was performed on multidetector high-resolution CT scanner utilizing a xial sections from the skull base through the vertex without contrast. One or more of the following dose reduction techniques were used: Automated exposure control, Adjustment of the mA and/or kV acc ording to patient size, and/or use of iterative reconstruction technique. DOSE: CTDI = 45 mGy and the DLP = 900 mGy-cm. COMPARISON: None available FINDINGS: Left frontal craniotomy changes with underlying left frontal lobe resection cavity identified. A sma ll amount of blood is seen within the resection cavity. Similar appearance of moderate surrounding v asogenic edema with 4 mm rightward midline shift anteriorly. Small amount of pneumocephalus now see n. Stable ventricle size. The basal cisterns are clear. No significant opacification of the visuali zed paranasal sinuses or mastoids. IMPRESSION: Postoperative changes of left frontal craniotomy with underlying left frontal lobe resection cavity. RPTAT: AA .Ok Villatoro MD, Date Time Electronically viewed and signed by .Ok Villatoro MD, on 10/23/2016 07:23 .T/
[2016-10-23] MEDS: LEVOTHYROXINE 88 MCG TAB PO SCH (07:32)
[2016-10-23 08:01] LABS: ADD SCAN DIFF NO
[2016-10-23 08:13] LABS: BASOPHILS % 0.1 % (0.0-2.0); HEMATOCRIT 35.7 % (42.0-52.0); HEMOGLOBIN 11.6 g/dl (14.0-18.0); LYMPHOCYTES # 0.8 10^3/ul (0.8-2.9); LYMPHOCYTES % 6.5 % (15.0-51.0); MEAN CORPUSCULAR HEMOGLOBIN 28.5 pg (29.0-33.0); MEAN CORPUSCULAR HGB CONC 32.5 g/dl (32.0-37.0); MEAN CORPUSCULAR VOLUME 87.7 fl (82.0-101.0); MONOCYTE # 0.8 10^3/ul (0.3-0.9); MONOCYTES % 6.9 % (0.0-11.0); NEUTROPHIL # 10.1 10^3/ul (1.6-7.5); PLATELET COUNT 234 10^3/UL (140-415); RED BLOOD COUNT 4.07 10^6/ul (4.70-6.10); RED CELL DISTRIBUTION WIDTH 13.5 % (11.5-14.5); WHITE BLOOD COUNT 11.7 10^3/ul (4.8-10.8)
[2016-10-23 08:20] LABS: CREATININE 0.72 mg/dl (0.61-1.24); POTASSIUM 3.8 mmol/L (3.5-5.1)
[2016-10-23 08:25] LABS: CALCIUM 8.2 mg/dl (8.4-10.2)
[2016-10-23 08:35] LABS: INR 1.15; PROTIME 14.7 Sec (12.2-14.2); PT RATIO 1.1
[2016-10-23 08:36] LABS: PARTIAL THROMBOPLASTIN TIME 26.4 Sec (25.0-35.0)
[2016-10-23] MEDS: DOCUSATE SODIUM 100 MG CAP PO SCH ×2 (09:00→21:36)
[2016-10-23] MEDS: VANCOMYCIN 1 GM in NS 250 ML IVPB SCH (09:04)
[2016-10-23] MEDS: LEVETIRACETAM 750 MG TAB PO SCH ×2 (09:29→21:36)
[2016-10-23 10:54] LABS: POTASSIUM 4.1 mmol/L (3.5-5.1)
[2016-10-23 10:56] LABS: BILIRUBIN,INDIRECT 0.5 mg/dl (0-1.1); BILIRUBIN,TOTAL 0.5 mg/dl (0.2-1.3); CREATININE 0.74 mg/dl (0.61-1.24)
[2016-10-23 10:57] LABS: ALBUMIN/GLOBULIN RATIO 1.15; CALCIUM 8.1 mg/dl (8.4-10.2); TOTAL PROTEIN 5.6 g/dl (6.1-8.1)
--- NOTE | 2016-10-23 12:46 | RADRPT ---
PROCEDURE: MRI Brain without and with contrast. CLINICAL INDICATION: Post craniotomy, left frontal tumor resection TECHNIQUE: Multiplanar MRI of the brain without and with contrast was performed on a 3.0 T scanner with the following sequences obtained: T1-weighted, T2-weighted/FLAIR, diffusion weighted (with ADC map), GRE, postcontrast T1-weighted. 10 ml Magnevist intravenous contrast was administered. COMPARISON: CT brain, 10/23/2016, MRI brain 10/20/2016 FINDINGS: Postoperative changes present with a left frontal craniotomy, subjacent small amount of postoperativ e extra-axial fluid - blood with mild dural enhancement and small amount of left frontal postoperati ve pneumocephalus. There has been resection of the left frontal mass with postoperative blood in th e resection cavity. There are ill-defined areas of marginal enhancement around the resection cavity . There has been slight improvement of surrounding edema which extends up to the left genu of the c orpus callosum. There is persistent mass effect with mild shift of the midline structures anteriorl y to the right measuring up to approximately 5 mm without significant change. Overall ventricles and sulci are unchanged in size and configuration without hydrocephalus identifie d. There are stable minimal scattered areas of increased T2-weighted FLAIR signal intensity in the deep white matter which are nonspecific, but may reflect chronic small vessel ischemic changes. No o ther intracranial mass lesion is identified. Flow voids are identified in the proximal intracranial arteries and dural sinuses suggesting patency . Small left and tiny right maxillary sinus mucous retention cysts are seen. IMPRESSION: 1. Postoperative changes, status post left frontal craniotomy and left frontal mass resection. 2. Ill-defined marginal enhancement at the left frontal resection cavity, postoperative change vers us residual enhancing tumor. 3. Slight improvement of surrounding edema, with mild rightward midline shift anteriorly, not signi ficantly changed. RPTAT: VV .Neo Mayorga MD, Date Time Electronically viewed and signed by .Neo Mayorga MD, on 10/23/2016 12:46 .O/
--- NOTE | 2016-10-23 15:34 | PN ---
Date/Time of Note Date/Time of Note DATE: 10/23/16 TIME: 15:25 Assessment/Plan Lines/Catheters IV Catheter Type (from [facility]): Peripheral IV [place] in Place (from [facility]): Yes Assessment/Plan Chief Complaint/Hosp Course POD # 1 s/p craniotomy for left frontal tumor. The patient is doing well. No new focal deficits. CT shows no significant post- op bleed. MRI shows > 90% resection. Ok to transfer to telemetry from neuro perspective. OOB, Ambulate. Cont. Keppra and Decadron. Final path pending but frozen c/w glioblastoma. Problems: Subjective 24 Hr Interval Summary Mr. Nava is doing well post-op. He denies significant headache, nausea, vomiting, dizziness, numbness, tingling or weakness. Exam/Review of Systems Vital Signs Vitals Vital Signs Date Time Temp Pulse Resp B/P Pulse Ox O2 Delivery O2 Flow Rate FiO2 10/23/16 13:24 64 10/23/16 12:00 98.3 20 114/67 95 10/23/16 10:00 2.0 10/23/16 09:58 Nasal Cannula Intake and Output 10/22/16 10/22/16 10/23/16 15:00 23:00 07:00 Intake Total 1500 ml Output Total 705 ml Balance 795 ml Exam Constitutional: alert, oriented, well developed Psych: nl mood/affect, no complaints Head: normocephalic, other (his incision is clean, dry and intact. 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
--- NOTE | 2016-10-23 16:24 | PN ---
Date/Time of Note Date/Time of Note DATE: 10/23/16 TIME: 16:17 Assessment/Plan VTE Prophylaxis VTE Prophylaxis Intervention: SCD's Lines/Catheters IV C[facility]ter Type (from [facility]): Peripheral IV Urinary Cath still in place: Yes Reason Cath still needed: urinary retention Assessment/Plan Assessment/Plan * Assessment * Left frontal lobe mass * S/p craniotomy 10/21/2016 * CT chest * There is a 3.8 cm long annular narrowing in the proximal descending colon with smooth tapering margins and may simply represent a region of spasm however a mass in this region cannot be excluded. Colonoscopy is suggested. Additional diverticular changes of the left colon but no CT evidence diverticulitis * 2. No evidence of thoracic abdominopelvic lymphadenopathy. 3. Numerous cysts involving the liver. Additional bilateral renal cysts. 4. No evidence of pulmonary nodules or thoracic effusions. 5. Distended urinary bladder but otherwise unremarkable. Moderate enlargement of the prostate gland. No obstructive uropathy. 6. Chronic osseous findings as above. Plan will do colonoscopy on elective basis will follow up as needed Subjective 24 Hr Interval Summary Free Text/Dictation * course reviewed with rn * patient seen and examined * S/P craniotomy secondary to left frontal tumor * denies any hematocheizia nor abdominal pain Exam/Review of Systems Vital Signs Vitals Vital Signs Date Time Temp Pulse Resp B/P Pulse Ox O2 Delivery O2 Flow Rate FiO2 10/23/16 16:13 98.6 63 20 122/68 99 10/23/16 10:00 2.0 10/23/16 09:58 Nasal Cannula Intake and Output 10/22/16 10/22/16 10/23/16 15:00 23:00 07:00 Intake Total 1500 ml Output Total 705 ml Balance 795 ml Exam Constitutional: alert, oriented Neck: supple Respiratory: clear to auscultation, normal air movement Cardiovascular: regular rate and rhythm Gastrointestinal: nl liver, spleen, non-tender, soft Musculoskeletal: nl extremities to inspection Results Result Diagram: 10/23/16 0800 10/23/16 0800 Results 24 hrs Laboratory Tests Test 10/23/16 08:00 White Blood Count 11.7 #H Red Blood Count 4.07 L Hemoglobin 11.6 L Hematocrit 35.7 L Mean Corpuscular Volume 87.7 Mean Corpuscular Hemoglobin 28.5 L Mean Corpuscular Hemoglobin Concent 32.5 Red Cell Distribution Width 13.5 Platelet Count 234 # Mean Platelet Volume 10.0 Neutrophils % 86.0 H Lymphocytes % 6.5 L Monocytes % 6.9 Eosinophils % 0.0 Basophils % 0.1 Nucleated Red Blood Cells % 0.0 Neutrophils # 10.1 H Lymphocytes # 0.8 Monocytes # 0.8 Eosinophils # 0.0 Basophils # 0.0 Nucleated Red Blood Cells # 0.0 Prothrombin Time 14.7 H Prothrombin Time Ratio 1.1 INR International Normalized Ratio 1.15 Activated Partial Thromboplast Time 26.4 Sodium Level 141 Potassium Level 3.8 Chloride Level 106 Carbon Dioxide Level 27 Anion Gap 12 Blood Urea Nitrogen 15 Creatinine 0.72 Glucose Level 117 Calcium Level 8.2 L Total Bilirubin 0.5 Direct Bilirubin 0.00 Indirect Bilirubin 0.5 Aspartate Amino Transf (AST/SGOT) 59 H Alanine Aminotransferase (ALT/SGPT) 78 H Alkaline Phosphatase 49 Total Protein 5.6 L Albumin 3.0 L Globulin 2.60 Albumin/Globulin Ratio 1.15 Vancomycin Level Trough < 5.0 L Medications Medications Current Medications Pantoprazole (Protonix Tab) 40 mg BID@06,18 PO Last administered on 10/23/16 05 :50; Admin Dose 40 MG; Start 10/20/16 at 06:00 Morphine Sulfate (morphine) 2 mg Q4H PRN IM PAIN; Start 10/20/16 at 03:30 Ondansetron HCl (Zofran Inj) 4 mg Q6H PRN IV NAUSEA AND/OR VOMITING; Start 10/20 at 03:30 Acetaminophen (Tylenol Tab) 650 mg Q6H PRN PO PAIN AND OR ELEVATED TEMP; Start 10/20/16 at 03:30 Levetiracetam 750 mg 750 mg BID PO Last administered on 10/23/16 09:29; Admin Dose 750 MG; Start 10/20/16 at 14:30 Cefazolin Sodium/ Dextrose (Ancef 2 Gm/50 ml (Pmx)) 50 ml @ 100 mls/hr Q8H IVPB Last administered on 10/23/16 05:44; Admin Dose 100 MLS/HR; Start 10/22/16 at 20:30; Stop 10/23/16 at 20:29 Morphine Sulfate (morphine) 2 mg Q2H PRN IV PAIN LEVEL 6-10; Start 10/22/16 at 20:30 Acetaminophen/ Hydrocodone Bitart 1 tab 1 tab Q6H PRN PO PAIN LEVEL 6-10; Start 10/22/16 at 20:30 Sodium Chloride (NS) 1,000 ml @ 100 mls/hr Q10H IV Last administered on 12:00; Admin Dose 100 MLS/HR; Start 10/22/16 at 20:06 Phenol (Cepastat Lozenge) 1 lozenge PRN PRN MT SORE THROAT; Start 10/22/16 at 20 :30 Docusate Sodium (Colace) 100 mg BID PO Last administered on 10/23/16 09:00; Admin Dose 100 MG; Start 10/22/16 at 21:00 Senna/Docusate Sodium (Senokot-S) 1 tab BID PRN PO CONSTIPATION; Start 10/22/16 at 20:30 Bisacodyl 10 mg 10 mg DAILY PRN IN CONSTIPATION; Start 10/22/16 at 20:30 Vancomycin HCl/ Sodium Chloride (Vancocin/NS) 250 ml @ 83.333 mls/ hr Q12H IVPB ; Start 10/23/16 at 21:00 Dexamethasone (Decadron) 4 mg TID PO ; Start 10/23/16 at 21:00; Status ALYSA GASTON MD Oct 23, 2016 16:24
--- NOTE | 2016-10-23 16:24 | CONS ---
Date/Time of Note Date/Time of Note DATE: 10/23/16 TIME: 16:15 Assessment/Plan Assessment/Plan Chief Complaint/Hosp Course 61 yo male who sustained a witnessed seizure who was found with a prominent mass lesion involving the left anterior frontal lobe measuring at least 3.6 x 2.2 cm, concerning for high-grade neoplasm such as glioblastoma multiforme. Patient is now s/p left frontal craniotomy for biopsy and resection of tumor. Post op MRI demonstrates an ill-defined marginal enhancement at the left frontal resection cavity which may represent postoperative change versus residual enhancing tumor. I spoke with Patrick Dunn who stated that > 90% of the tumor was resected. -will decreased Decadron to 40mg TID po and continue to taper while patient is in house. continue Keppra -pt will need to follow up with radiation oncology. will put patient in contact with Christina Ware MD who will likely initiate brain XRT within 2 weeks. This will likely be done in conjunction with oral Temodar -will need to follow up final path to determine the subtype and grade of glioma. On frozen section it appears to be most consistent with GBM but we will need to wait for the final path -molecular markers will also be done on the path specimen which will help us prognosticate the tumor and its response to therapy -will wait to proceed with the GI workup of this colonic inflammation. currently the most urgent tissue is treatment of this primary brain tumor. Approximately 40 min were spent at patient's bedside and in coordination of his care Problems: Consultation Date/Type/Reason Admit Date/Time Oct 20, 2016 at 00:44 Initial Consult Date 10/21/16 Type of Consultation: Neurosurgery Reason for Consultation high grade glioma Referring Provider: XAVIER ALSTON 24 HR Interval Summary Free Text/Dictation pt had brain tumor resection yesterday. pain is controlled. recovering well postoperatively Exam/Review of Systems Vital Signs Vitals Vital Signs Date Time Temp Pulse Resp B/P Pulse Ox O2 Delivery O2 Flow Rate FiO2 10/23/16 16:13 98.6 63 20 122/68 99 10/23/16 10:00 2.0 10/23/16 09:58 Nasal Cannula Intake and Output 10/22/16 10/22/16 10/23/16 14:59 22:59 06:59 Intake Total 1500 ml Output Total 705 ml Balance 795 ml Exam Constitutional: alert, oriented Head: normocephalic, other (dressing in place) ENMT: nl external ears & nose Neck: non-tender, supple Respiratory: clear to auscultation Cardiovascular: nl pulses, regular rate and rhythm Gastrointestinal: soft Musculoskeletal: nl extremities to inspection, nl gait and stance Extremities: normal pulses 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 Results Result Diagram: 10/23/16 0800 10/23/16 0800 Results 24 hrs Laboratory Tests Test 10/23/16 08:00 White Blood Count 11.7 #H Red Blood Count 4.07 L Hemoglobin 11.6 L Hematocrit 35.7 L Mean Corpuscular Volume 87.7 Mean Corpuscular Hemoglobin 28.5 L Mean Corpuscular Hemoglobin Concent 32.5 Red Cell Distribution Width 13.5 Platelet Count 234 # Mean Platelet Volume 10.0 Neutrophils % 86.0 H Lymphocytes % 6.5 L Monocytes % 6.9 Eosinophils % 0.0 Basophils % 0.1 Nucleated Red Blood Cells % 0.0 Neutrophils # 10.1 H Lymphocytes # 0.8 Monocytes # 0.8 Eosinophils # 0.0 Basophils # 0.0 Nucleated Red Blood Cells # 0.0 Prothrombin Time 14.7 H Prothrombin Time Ratio 1.1 INR International Normalized Ratio 1.15 Activated Partial Thromboplast Time 26.4 Sodium Level 141 Potassium Level 3.8 Chloride Level 106 Carbon Dioxide Level 27 Anion Gap 12 Blood Urea Nitrogen 15 Creatinine 0.72 Glucose Level 117 Calcium Level 8.2 L Total Bilirubin 0.5 Direct Bilirubin 0.00 Indirect Bilirubin 0.5 Aspartate Amino Transf (AST/SGOT) 59 H Alanine Aminotransferase (ALT/SGPT) 78 H Alkaline Phosphatase 49 Total Protein 5.6 L Albumin 3.0 L Globulin 2.60 Albumin/Globulin Ratio 1.15 Vancomycin Level Trough < 5.0 L Medications Medications Current Medications Pantoprazole (Protonix Tab) 40 mg BID@06,18 PO Last administered on 10/23/16t 05 :50; Admin Dose 40 MG; Start 10/20/16 at 06:00 Morphine Sulfate (morphine) 2 mg Q4H PRN IM PAIN; Start 10/20/16 at 03:30 Ondansetron HCl (Zofran Inj) 4 mg Q6H PRN IV NAUSEA AND/OR VOMITING; Start 10/20 at 03:30 Acetaminophen (Tylenol Tab) 650 mg Q6H PRN PO PAIN AND OR ELEVATED TEMP; Start 10/20/16 at 03:30 Dexamethasone (Decadron) 4 mg Q6 IV Last administered on 10/23/16 05:44; Admin Dose 4 MG; Start 10/20/16 at 07:00 Levetiracetam 750 mg 750 mg BID PO Last administered on 10/23/16 09:29; Admin Dose 750 MG; Start 10/20/16 at 14:30 Cefazolin Sodium/ Dextrose (Ancef 2 Gm/50 ml (Pmx)) 50 ml @ 100 mls/hr Q8H IVPB Last administered on 10/23/16 05:44; Admin Dose 100 MLS/HR; Start 10/22/16 at 20:30; Stop 10/23/16 at 20:29 Morphine Sulfate (morphine) 2 mg Q2H PRN IV PAIN LEVEL 6-10; Start 10/22/16 at 20:30 Acetaminophen/ Hydrocodone Bitart 1 tab 1 tab Q6H PRN PO PAIN LEVEL 6-10; Start 10/22/16 at 20:30 Sodium Chloride (NS) 1,000 ml @ 100 mls/hr Q10H IV Last administered on 12:00; Admin Dose 100 MLS/HR; Start 10/22/16 at 20:06 Phenol (Cepastat Lozenge) 1 lozenge PRN PRN MT SORE THROAT; Start 10/22/16 at 20 :30 Docusate Sodium (Colace) 100 mg BID PO Last administered on 10/23/16 09:00; Admin Dose 100 MG; Start 10/22/16 at 21:00 Senna/Docusate Sodium (Senokot-S) 1 tab BID PRN PO CONSTIPATION; Start 10/22/16 at 20:30 Bisacodyl 10 mg 10 mg DAILY PRN MS CONSTIPATION; Start 10/22/16 at 20:30 Vancomycin HCl/ Sodium Chloride (Vancocin/NS) 250 ml @ 83.333 mls/ hr Q12H IVPB ; Start 10/23/16 at 21:00 KOBE GIVENS M.D. Oct 23, 2016 16:24
[2016-10-23] MEDS: DEXAMETHASONE 4 MG TAB PO SCH (21:36)
[2016-10-23] MEDS: VANCOMYCIN 1.25 GM in SOD CHLORIDE 0.9% 250 ML IVPB SCH (21:36)
--- NOTE | 2016-10-23 22:05 | PN ---
Date/Time of Note Date/Time of Note DATE: 10/23/16 TIME: 22:03 Assessment/Plan VTE Prophylaxis VTE Prophylaxis Intervention: SCD's Lines/Catheters IV Catheter Type (from [facility]): Peripheral IV Urinary Cath still in place: Yes Reason Cath still needed: other (indicate) (Post op neurosurgery ) Assessment/Plan Assessment/Plan 1. Brain tumour s/p left frontal craniotomy for biopsy and resection of tumor. Post op MRI demonstrates an ill-defined marginal enhancement at the left frontal resection cavity which may represent postoperative change versus residual enhancing tumor. I spoke with Patrick Dunn who stated that > 90% of the tumor was resected. 2. Acute encephalopathy secondary to above-stable 3. SIRS, Blood cx grew coag neg mo madsen contaminant Blood culture-1 out of 2 does show gram-positive cocci in clusters, follow-up on organism specifics, consider ID consult if this ends up not being contamination started on Vanco 4. History of hypothyroidism continue Synthroid 5. History of gastritis. 6. History of parathyroidectomy. 7. Possible colon mass noted on CT- will need colonoscoy by GI GI consult appreciated, patient may need a colonoscopy for further evaluation during his hospitalization Prophylaxis: SCDs decrease decadron pt will need radiation as outpatient will follow up Subjective 24 Hr Interval Summary Free Text/Dictation Patient is now s/p left frontal craniotomy for biopsy and resection of tumor. Post op MRI demonstrates an ill-defined marginal enhancement at the left frontal resection cavity which may represent postoperative change versus residual enhancing tumor. I spoke with Patrick Dunn who stated that > 90% of the tumor was resected. no acute events, BP stable Exam/Review of Systems Vital Signs Vitals Vital Signs Date Time Temp Pulse Resp B/P Pulse Ox O2 Delivery O2 Flow Rate FiO2 10/23/16 20:44 62 10/23/16 20:00 99.1 19 116/74 95 10/23/16 18:25 2.0 10/23/16 09:58 Nasal Cannula Intake and Output 10/22/16 10/22/16 10/23/16 15:00 23:00 07:00 Intake Total 1500 ml Output Total 705 ml Balance 795 ml Results Result Diagram: 10/23/16 0800 10/23/16 0800 Results 24 hrs Laboratory Tests Test 10/23/16 08:00 White Blood Count 11.7 #H Red Blood Count 4.07 L Hemoglobin 11.6 L Hematocrit 35.7 L Mean Corpuscular Volume 87.7 Mean Corpuscular Hemoglobin 28.5 L Mean Corpuscular Hemoglobin Concent 32.5 Red Cell Distribution Width 13.5 Platelet Count 234 # Mean Platelet Volume 10.0 Neutrophils % 86.0 H Lymphocytes % 6.5 L Monocytes % 6.9 Eosinophils % 0.0 Basophils % 0.1 Nucleated Red Blood Cells % 0.0 Neutrophils # 10.1 H Lymphocytes # 0.8 Monocytes # 0.8 Eosinophils # 0.0 Basophils # 0.0 Nucleated Red Blood Cells # 0.0 Prothrombin Time 14.7 H Prothrombin Time Ratio 1.1 INR International Normalized Ratio 1.15 Activated Partial Thromboplast Time 26.4 Sodium Level 141 Potassium Level 3.8 Chloride Level 106 Carbon Dioxide Level 27 Anion Gap 12 Blood Urea Nitrogen 15 Creatinine 0.72 Glucose Level 117 Calcium Level 8.2 L Total Bilirubin 0.5 Direct Bilirubin 0.00 Indirect Bilirubin 0.5 Aspartate Amino Transf (AST/SGOT) 59 H Alanine Aminotransferase (ALT/SGPT) 78 H Alkaline Phosphatase 49 Total Protein 5.6 L Albumin 3.0 L Globulin 2.60 Albumin/Globulin Ratio 1.15 Vancomycin Level Trough < 5.0 L Medications Medications Current Medications Pantoprazole (Protonix Tab) 40 mg BID@06,18 PO Last administered on 10/23/16 17 :09; Admin Dose 40 MG; Start 10/20/16 at 06:00 Morphine Sulfate (morphine) 2 mg Q4H PRN IM PAIN; Start 10/20/16 at 03:30 Ondansetron HCl (Zofran Inj) 4 mg Q6H PRN IV NAUSEA AND/OR VOMITING; Start 10/20 at 03:30 Acetaminophen (Tylenol Tab) 650 mg Q6H PRN PO PAIN AND OR ELEVATED TEMP; Start 10/20/16 at 03:30 Levetiracetam (Keppra) 750 mg BID PO Last administered on 10/23/16 21:36; Admin Dose 750 MG; Start 10/20/16 at 14:30 Morphine Sulfate (morphine) 2 mg Q2H PRN IV PAIN LEVEL 6-10; Start 10/22/16 at 20:30 Acetaminophen/ Hydrocodone Bitart 1 tab 1 tab Q6H PRN PO PAIN LEVEL 6-10; Start 10/22/16 at 20:30 Sodium Chloride (NS) 1,000 ml @ 100 mls/hr Q10H IV Last administered on 12:00; Admin Dose 100 MLS/HR; Start 10/22/16 at 20:06 Phenol (Cepastat Lozenge) 1 lozenge PRN PRN MT SORE THROAT; Start 10/22/16 at 20 :30 Docusate Sodium (Colace) 100 mg BID PO Last administered on 10/23/16 21:36; Admin Dose 100 MG; Start 10/22/16 at 21:00 Senna/Docusate Sodium (Senokot-S) 1 tab BID PRN PO CONSTIPATION; Start 10/22/16 at 20:30 Bisacodyl 10 mg 10 mg DAILY PRN ID CONSTIPATION; Start 10/22/16 at 20:30 Vancomycin HCl/ Sodium Chloride (Vancocin/NS) 250 ml @ 83.333 mls/ hr Q12H IVPB Last administered on 10/23/16 21:36; Admin Dose 83.333 MLS/HR; Start at 21:00 Dexamethasone (Decadron) 4 mg TID PO Last administered on 10/23/16 21:36; Admin Dose 4 MG; Start 10/23/16 at 21:00 MONTRELL EPSTEIN MD Oct 23, 2016 22:05
[2016-10-23] MEDS: ZOLPIDEM 5 MG TAB PO PRN (22:45)
[2016-10-24] VITALS (11 sets, daily range): BP systolic 110–129; BP diastolic 66–81; PULSE 54–77; RESP 17–20
[2016-10-24] MEDS: SOD CHLORIDE 0.9% 1,000 ML IV SCH (03:00)
[2016-10-24] MEDS: PANTOPRAZOLE (EC) 40 MG TAB PO SCH ×2 (06:04→18:13)
[2016-10-24] MEDS: LEVOTHYROXINE 88 MCG TAB PO SCH (07:24)
[2016-10-24] MEDS: DEXAMETHASONE 4 MG TAB PO SCH ×3 (08:24→22:14)
[2016-10-24] MEDS: LEVETIRACETAM 750 MG TAB PO SCH ×2 (08:24→22:14)
[2016-10-24] MEDS: VANCOMYCIN 1.25 GM in SOD CHLORIDE 0.9% 250 ML IVPB SCH ×2 (08:24→22:14)
[2016-10-24] MEDS: DOCUSATE SODIUM 100 MG CAP PO SCH ×2 (08:24→22:14)
--- NOTE | 2016-10-24 08:34 | PN ---
Date/Time of Note Date/Time of Note DATE: 10/24/16 TIME: 08:29 Assessment/Plan Lines/Catheters IV Catheter Type (from [facility]): Peripheral IV [place] in Place (from [facility]): No Assessment/Plan Chief Complaint/Hosp Course POD # 2 s/p craniotomy for left frontal tumor. The patient is doing well. PT/OT Cont. Keppra, ween Decadron to 2 BID.. Final path pending but frozen c/w glioblastoma. Ok for D/C Home from Neurosurgical perspective later today if continues to do well. f/u with me in 05-04 for staple removal. Oncology to follow further and XRT oncology to see as outpatient. Discuss discharge instructions and precautions with pt. and who expressed understanding and agreement with plan of care. Problems: Subjective 24 Hr Interval Summary Patient doing well. Denies dizziness, nausea, vomiting, weakness or speech difficulties. Has not had further seizures since initial seizure. Only reports mild frontal headaches/ pressure over craniotomy. Exam/Review of Systems Vital Signs Vitals Vital Signs Date Time Temp Pulse Resp B/P Pulse Ox O2 Delivery O2 Flow Rate FiO2 10/24/16 08:27 59 10/24/16 07:29 98.3 20 124/75 95 10/23/16 18:25 2.0 10/23/16 09:58 Nasal Cannula Intake and Output 10/23/16 10/23/16 10/24/16 15:00 23:00 07:00 Intake Total 850 ml 300 ml 550 ml Output Total 2000 ml 350 ml Balance -1150 ml 300 ml 200 ml Exam Constitutional: alert, oriented, well developed Psych: nl mood/affect, no complaints Head: normocephalic Eyes: EOMI, PERRL Drains D/C'd. 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 Follows commands readily and appropriately.), nl speech, nl strength Skin: other (incision clean, dry and intact.) Results Result Diagram: 10/23/16 0800 10/23/16 08 JOVANNI CRENSHAW MD Oct 24, 2016 08:34
--- NOTE | 2016-10-24 11:13 | PN ---
Date/Time of Note Date/Time of Note DATE: 10/24/16 TIME: 11:08 Assessment/Plan VTE Prophylaxis VTE Prophylaxis Intervention: SCD's Lines/Catheters IV [facility] (from [facility] Peripheral IV Urinary Cath still in place: No Assessment/Plan Assessment/Plan 1. Brain tumour s/p left frontal craniotomy for biopsy and resection of tumor. Post op MRI demonstrates an ill-defined marginal enhancement at the left frontal resection cavity which may represent postoperative change versus residual enhancing tumor. I spoke with Patrick Dunn who stated that > 90% of the tumor was resected. 2. Acute encephalopathy secondary to above-stable 3. SIRS, Blood cx grew coag neg mo madsen contaminant Blood culture-1 out of 2 does show gram-positive cocci in clusters, follow-up on organism specifics, consider ID consult if this ends up not being contamination started on Vanco 4. History of hypothyroidism continue Synthroid 5. History of gastritis. 6. History of parathyroidectomy. 7. Possible colon mass noted on CT- will need colonoscoy by GI GI consult appreciated, patient may need a colonoscopy for further evaluation during his hospitalization Prophylaxis: SCDs on decadron switched from IV to PO 4 mg TID- plan is to wean decadron to 4mg BID follow up with Neurosurgery as outpatient for staple removal in 2 weeks Oncology to arrange for radiation d/c IVF downgrade to med/surge floor GI to decide about plan for colonoscopy outpatient vs inpatient Subjective 24 Hr Interval Summary Free Text/Dictation on decadron switched from IV to PO 4 mg TID, doing better, on IVF, s/p neurosurgery follow up Exam/Review of Systems Vital Signs Vitals Vital Signs Date Time Temp Pulse Resp B/P Pulse Ox O2 Delivery O2 Flow Rate FiO2 10/24/16 08:27 59 10/24/16 07:29 98.3 20 124/75 95 10/23/16 18:25 2.0 10/23/16 09:58 Nasal Cannula Intake and Output 10/23/16 10/23/16 10/24/16 15:00 23:00 07:00 Intake Total 850 ml 300 ml 550 ml Output Total 2000 ml 350 ml Balance -1150 ml 300 ml 200 ml Exam Constitutional: alert, oriented Head: normocephalic, other (dressing in place) ENMT: nl external ears & nose Neck: non-tender, supple Respiratory: clear to auscultation Cardiovascular: nl pulses, regular rate and rhythm Gastrointestinal: soft Musculoskeletal: nl extremities to inspection, nl gait and stance Extremities: normal pulses Neurological: SUPPORT ENGINEER II-XII intact Results Result Diagram: 10/23/16 0800 10/23/16 0800 Medications Medications Current Medications Pantoprazole (Protonix Tab) 40 mg BID@06,18 PO Last administered on 10/24/16 06 :04; Admin Dose 40 MG; Start 10/20/16 at 06:00 Morphine Sulfate (morphine) 2 mg Q4H PRN IM PAIN; Start 10/20/16 at 03:30 Ondansetron HCl (Zofran Inj) 4 mg Q6H PRN IV NAUSEA AND/OR VOMITING; Start 10/20 at 03:30 Acetaminophen (Tylenol Tab) 650 mg Q6H PRN PO PAIN AND OR ELEVATED TEMP; Start 10/20/16 at 03:30 Levetiracetam (Keppra) 750 mg BID PO Last administered on 10/24/16 08:24; Admin Dose 750 MG; Start 10/20/16 at 14:30 Morphine Sulfate (morphine) 2 mg Q2H PRN IV PAIN LEVEL 6-10; Start 10/22/16 at 20:30 Acetaminophen/ Hydrocodone Bitart 1 tab 1 tab Q6H PRN PO PAIN LEVEL 6-10; Start 10/22/16 at 20:30 Sodium Chloride (NS) 1,000 ml @ 100 mls/hr Q10H IV Last administered on 03:00; Admin Dose 100 MLS/HR; Start 10/22/16 at 20:06 Phenol (Cepastat Lozenge) 1 lozenge PRN PRN MT SORE THROAT; Start 10/22/16 at 20 :30 Docusate Sodium (Colace) 100 mg BID PO Last administered on 10/24/16 08:24; Admin Dose 100 MG; Start 10/22/16 at 21:00 Senna/Docusate Sodium (Senokot-S) 1 tab BID PRN PO CONSTIPATION Last administered on 10/24/16 08:24; Admin Dose 1 TAB; Start 10/22/16 at 20:30 Bisacodyl 10 mg 10 mg DAILY PRN [place] CONSTIPATION; Start 4/3/17 at 20:30 Vancomycin HCl/ Sodium Chloride (Vancocin/NS) 250 ml @ 83.333 mls/ hr Q12H IVPB Last administered on 10/24/16 08:24; Admin Dose 83.333 MLS/HR; Start at 21:00 Dexamethasone (Decadron) 4 mg TID PO Last administered on 10/24/16 08:24; Admin Dose 4 MG; Start 10/23/16 at 21:00 Zolpidem Tartrate (Ambien) 5 mg HS PRN PO INSOMNIA Last administered on 22:45; Admin Dose 5 MG; Start 10/23/16 at 22:30 MONTRELL EPSTEIN MD Oct 24, 2016 11:13
--- NOTE | 2016-10-24 13:57 | CONS ---
Date/Time of Note Date/Time of Note DATE: 10/24/16 TIME: 13:55 Assessment/Plan Assessment/Plan Chief Complaint/Hosp Course 61 yo male who sustained a witnessed seizure who was found with a prominent mass lesion involving the left anterior frontal lobe measuring at least 3.6 x 2.2 cm, concerning for high-grade neoplasm such as glioblastoma multiforme. Patient is now s/p left frontal craniotomy for biopsy and resection of tumor. Post op MRI demonstrates an ill-defined marginal enhancement at the left frontal resection cavity which may represent postoperative change versus residual enhancing tumor. I spoke with Patrick Dunn who stated that > 90% of the tumor was resected. -will decreased Decadron to 4mg BID po and continue to taper while patient is in house. continue Keppra -pt will need to follow up with radiation oncology. will put patient in contact with Christina Ware MD who will likely initiate brain XRT within 2 weeks. This will likely be done in conjunction with oral Temodar. PT was given Dr. Fajardo's information -will need to follow up final path to determine the subtype and grade of glioma. On frozen section it appears to be most consistent with GBM but we will need to wait for the final path -molecular markers will also be done on the path specimen which will help us prognosticate the tumor and its response to therapy -will wait to proceed with the GI workup of this colonic inflammation. currently the most urgent tissue is treatment of this primary brain tumor. -pt may follow up in my clinic the week of November 04 Approximately 40 min were spent at patient's bedside and in coordination of his care Problems: Consultation Date/Type/Reason Admit Date/Time Oct 20, 2016 at 00:44 Initial Consult Date 10/21/16 Type of Consultation: Hematology Reason for Consultation brain tumor Referring Provider: XAVIER ALSTON 24 HR Interval Summary Free Text/Dictation pt recovering well from the surgery. no residual deficits. no pain Exam/Review of Systems Vital Signs Vitals Vital Signs Date Time Temp Pulse Resp B/P Pulse Ox O2 Delivery O2 Flow Rate FiO2 10/24/16 12:26 77 10/24/16 11:58 98.3 20 110/66 96 10/23/16 18:25 2.0 10/23/16 09:58 Nasal Cannula Intake and Output 10/23/16 10/23/16 10/24/16 15:00 23:00 07:00 Intake Total 850 ml 300 ml 550 ml Output Total 2000 ml 350 ml Balance -1150 ml 300 ml 200 ml Exam Constitutional: alert, oriented Psych: no complaints Head: other (dressing in place. c/d/i) Neck: non-tender, supple Respiratory: clear to auscultation, normal air movement Cardiovascular: regular rate and rhythm Gastrointestinal: soft Musculoskeletal: nl extremities to inspection, nl gait and stance Results Result Diagram: 10/23/16 0810/23/16 0800 Medications Medications Current Medications Pantoprazole (Protonix Tab) 40 mg BID@,18 PO Last administered on 10/24/16 06 :04; Admin Dose 40 MG; Start 10/20/16 at 06:00 Morphine Sulfate (morphine) 2 mg Q4H PRN IM PAIN; Start 10/20/16 at 03:30 Ondansetron HCl (Zofran Inj) 4 mg Q6H PRN IV NAUSEA AND/OR VOMITING; Start 10/20 at 03:30 Acetaminophen (Tylenol Tab) 650 mg Q6H PRN PO PAIN AND OR ELEVATED TEMP; Start 10/20/16 at 03:30 Levetiracetam (Keppra) 750 mg BID PO Last administered on 10/24/16 08:24; Admin Dose 750 MG; Start 10/20/16 at 14:30 Morphine Sulfate (morphine) 2 mg Q2H PRN IV PAIN LEVEL 6-10; Start 10/22/16 at 20:30 Acetaminophen/ Hydrocodone Bitart ([place] (5/325)) 1 tab Q6H PRN PO PAIN LEVEL 6 -10; Start 10/22/16 at 20:30 Phenol (Cepastat Lozenge) 1 lozenge PRN PRN MT SORE THROAT; Start 10/22/16 at 20 :30 Docusate Sodium (Colace) 100 mg BID PO Last administered on 10/24/16 08:24; Admin Dose 100 MG; Start 10/22/16 at 21:00 Senna/Docusate Sodium (Senokot-S) 1 tab BID PRN PO CONSTIPATION Last administered on 10/24/16 08:24; Admin Dose 1 TAB; Start 10/22/16 at 20:30 Bisacodyl 10 mg 10 mg DAILY PRN [place] CONSTIPATION; Start 10/22/16 at 20:30 Vancomycin HCl/ Sodium Chloride (Vancocin/NS) 250 ml @ 83.333 mls/ hr Q12H IVPB Last administered on 10/24/16 08:24; Admin Dose 83.333 MLS/HR; Start at 21:00 Dexamethasone (Decadron) 4 mg TID PO Last administered on 10/24/16 12:52; Admin Dose 4 MG; Start 10/23/16 at 21:00 Zolpidem Tartrate (Ambien) 5 mg HS PRN PO INSOMNIA Last administered on 22:45; Admin Dose 5 MG; Start 10/23/16 at 22:30 KOBE GIVENS M.D. Oct 24, 2016 13:57
[2016-10-24] MEDS: ZOLPIDEM 5 MG TAB PO PRN (23:33)
[2016-10-25 00:38] VITALS: BP 124/74; RESP 71
[2016-10-25 01:58] VITALS: BP 137/73; RESP 18
[2016-10-25] MEDS: PANTOPRAZOLE (EC) 40 MG TAB PO SCH (06:29)
[2016-10-25] MEDS: LEVOTHYROXINE 88 MCG TAB PO SCH (06:29)
[2016-10-25 06:31] VITALS: BP 137/72; PULSE 54; RESP 16
[2016-10-25 06:50] LABS: POTASSIUM 3.8 mmol/L (3.5-5.1)
[2016-10-25 06:52] LABS: CREATININE 0.64 mg/dl (0.61-1.24)
[2016-10-25 06:53] LABS: CALCIUM 8.4 mg/dl (8.4-10.2)
[2016-10-25 07:27] VITALS: BP 101/57; RESP 20
[2016-10-25 08:02] VITALS: BP 152/76; RESP 19
--- NOTE | 2016-10-25 08:19 | PN ---
Date/Time of Note Date/Time of Note DATE: 10/25/16 TIME: 08:13 Assessment/Plan Lines/Catheters IV C[facility]ter Type (from [facility]): Saline Lock [place] in Place (from [facility]): No Assessment/Plan Chief Complaint/Hosp Course POD # 3 s/p craniotomy for left frontal tumor. Patient doing well. Ambulating, eating, pain well controlled. No deficits. Doubt pt. ever had any type of sepsis or bacteremia, to begin with, contaminant from blood cultures. Ok for D/C Home from Neurosurgical perspective. f/u with me in 05-04 for staple removal. Oncology to follow further and XRT oncology to see as outpatient. Problems: Subjective 24 Hr Interval Summary Patient without complaints. Denies headaches, fever, chills, numbness, tingling or weakness. No recurrent seizures. Wants to go home. Exam/Review of Systems Vital Signs Vitals Vital Signs Date Time Temp Pulse Resp B/P Pulse Ox O2 Delivery O2 Flow Rate FiO2 10/25/16 08:02 97.8 61 19 152/76 98 10/23/16 18:25 2.0 10/23/16 09:58 Nasal Cannula Intake and Output 10/24/16 10/24/16 10/25/16 15:00 23:00 07:00 Intake Total 300 ml 1250 ml 250 ml Output Total 5 ml Balance 295 ml 1250 ml 250 ml Exam Constitutional: alert, oriented, well developed Psych: nl mood/affect, no complaints Head: normocephalic, other (incision C/D/I) Eyes: EOMI, PERRL Neurological: CLERICAL MANAGER II-XII intact, nl mental status, nl speech, nl strength, other (no pronator drift) Results Result Diagram: 10/23/16 0800 10/25/16 0552 JOVANNI CRENSHAW MD Oct 25, 2016 08:19
[2016-10-25] MEDS: LEVETIRACETAM 750 MG TAB PO SCH (08:37)
[2016-10-25] MEDS: DOCUSATE SODIUM 100 MG CAP PO SCH (08:37)
[2016-10-25] MEDS: DEXAMETHASONE 4 MG TAB PO SCH (09:41)
[2016-10-25] MEDS: VANCOMYCIN 1.25 GM in SOD CHLORIDE 0.9% 250 ML IVPB SCH (09:42)
--- NOTE | 2016-10-25 11:19 | PN ---
Date/Time of Note Date/Time of Note DATE: 10/25/16 TIME: 11:17 Assessment/Plan VTE Prophylaxis VTE Prophylaxis Intervention: SCD's Lines/Catheters IV Catheter Type (from [facility]): Saline Lock Urinary Cath still in place: No Assessment/Plan Assessment/Plan 1. Brain tumour s/p left frontal craniotomy for biopsy and resection of tumor. Post op MRI demonstrates an ill-defined marginal enhancement at the left frontal resection cavity which may represent postoperative change versus residual enhancing tumor. I spoke with Patrick Dunn who stated that > 90% of the tumor was resected. 2. Acute encephalopathy secondary to above-stable 3. SIRS, Blood cx grew coag neg mo madsen contaminant Blood culture-1 out of 2 does show gram-positive cocci in clusters, follow-up on organism specifics, consider ID consult if this ends up not being contamination started on Vanco 4. History of hypothyroidism continue Synthroid 5. History of gastritis. 6. History of parathyroidectomy. 7. Possible colon mass noted on CT- will need colonoscoy by GI GI consult appreciated, patient may need a colonoscopy for further evaluation during his hospitalization Prophylaxis: SCDs on decadron switched from IV to PO 4 mg TID- plan is to wean decadron to 4mg BID d/c home today follow up with oncolgoy and neurology as outpatient pt will need neurology evaluation as outpatient Subjective 24 Hr Interval Summary Free Text/Dictation pt stable, afebrile, BP stable Exam/Review of Systems Vital Signs Vitals Vital Signs Date Time Temp Pulse Resp B/P Pulse Ox O2 Delivery O2 Flow Rate FiO2 10/25/16 08:02 97.8 61 19 152/76 98 10/23/16 18:25 2.0 10/23/16 09:58 Nasal Cannula Intake and Output 10/24/16 10/24/16 10/25/16 15:00 23:00 07:00 Intake Total 300 ml 1250 ml 250 ml Output Total 5 ml Balance 295 ml 1250 ml 250 ml Exam Constitutional: alert, oriented Head: normocephalic, other (dressing in place) ENMT: nl external ears & nose Neck: non-tender, supple Respiratory: clear to auscultation Cardiovascular: nl pulses, regular rate and rhythm Gastrointestinal: soft Musculoskeletal: nl extremities to inspection, nl gait and stance Extremities: normal pulses Neurological: GLASS ENAMEL MIXER II-XII intact Results Result Diagram: 10/23/16 0800 10/25/16 0552 Results 24 hrs Laboratory Tests Test 10/25/16 05:52 10/25/16 07:50 Sodium Level 142 Potassium Level 3.8 Chloride Level 106 Carbon Dioxide Level 26 Anion Gap 14 Blood Urea Nitrogen 15 Creatinine 0.64 Glucose Level 143 Calcium Level 8.4 Vancomycin Level Trough 7.7 L Medications Medications Current Medications Pantoprazole (Protonix Tab) 40 mg BID@06,18 PO Last administered on 10/25/16 06 :29; Admin Dose 40 MG; Start 10/20/16 at 06:00 Morphine Sulfate (morphine) 2 mg Q4H PRN IM PAIN; Start 10/20/16 at 03:30 Ondansetron HCl (Zofran Inj) 4 mg Q6H PRN IV NAUSEA AND/OR VOMITING; Start 10/20 at 03:30 Acetaminophen (Tylenol Tab) 650 mg Q6H PRN PO PAIN AND OR ELEVATED TEMP; Start 10/20/16 at 03:30 Levetiracetam (Keppra) 750 mg BID PO Last administered on 10/25/16 08:37; Admin Dose 750 MG; Start 10/20/16 at 14:30 Morphine Sulfate (morphine) 2 mg Q2H PRN IV PAIN LEVEL 6-10; Start 10/22/16 at 20:30 Acetaminophen/ Hydrocodone Bitart ([place] (5/325)) 1 tab Q6H PRN PO PAIN LEVEL 6 -10; Start 10/22/16 at 20:30 Phenol (Cepastat Lozenge) 1 lozenge PRN PRN MT SORE THROAT; Start 10/22/16 at 20 :30 Docusate Sodium (Colace) 100 mg BID PO Last administered on 10/25/16 08:37; Admin Dose 100 MG; Start 10/22/16 at 21:00 Senna/Docusate Sodium (Senokot-S) 1 tab BID PRN PO CONSTIPATION Last administered on 10/24/16 08:24; Admin Dose 1 TAB; Start 10/22/16 at 20:30 Bisacodyl 10 mg 10 mg DAILY PRN [place] CONSTIPATION; Start 10/22/16 at 20:30 Vancomycin HCl/ Sodium Chloride (Vancocin/NS) 250 ml @ 83.333 mls/ hr Q12H IVPB Last administered on 10/25/16 09:42; Admin Dose 83.333 MLS/HR; Start at 21:00 Dexamethasone (Decadron) 4 mg TID PO Last administered on 10/25/16 09:41; Admin Dose 4 MG; Start 10/23/16 at 21:00 Zolpidem Tartrate (Ambien) 5 mg HS PRN PO INSOMNIA Last administered on 23:33; Admin Dose 5 MG; Start 10/23/16 at 22:30 MONTRLEL EPSTEIN MD Oct 25, 2016 11:19
--- NOTE | 2016-10-25 11:20 | PDOCDIS ---
Discharge Instructions CONDITION Patient Condition: Good HOME CARE INSTRUCTIONS: Special Diet: regular ACTIVITY: Activity Restrictions: Slowly Increase Activity Rest between Activity Avoid heavy lifting Avoid Heavy Housework FOLLOW UP/APPOINTMENTS Appointments Follow up with his own PMD through HMO insurance in 1-2 week. Follow up with ONcology as outpatient in 1-2 week. Follow up Neurosurgery in 2 weeks for delores removal. Follow up with Radiation as outpatient as scheduled( pt familiy knows about it and they have been working on it) MONTRELL EPSTEIN MD Oct 25, 2016 11:20
[2016-10-25] MEDS ORDERED: LEVO88TA3 PO (11:22)
[2016-10-25] MEDS ORDERED: OMEP40CA6 PO (11:22)
[2016-10-25] MEDS ORDERED: DEC4 PO (11:22)
[2016-10-25] MEDS ORDERED: PANT40TA3 PO (12:38)
--- NOTE | 2016-10-25 22:49 | DS ---
DATE OF ADMISSION: 10/20/2016 DATE OF DISCHARGE: 10/25/2016 FINAL DISCHARGE DIAGNOSES: 1. Brain tumor, status post left frontal craniotomy for biopsy and resection of tumor. 2. Acute encephalopathy secondary to brain tumor. 3. Systemic inflammatory response syndrome secondary to brain tumor. 4. Bacteremia with blood culture growing coagulase-negative Staphylococcus, likely a contaminant. 5. History of hypothyroidism. 6. History of gastritis. 7. History of parathyroidectomy. 8. Possible colon mass noted on CT scan. CONSULTATIONS DONE DURING THIS HOSPITALIZATION: 1. Neurology consult, Roland Nguyen MD 2. GI consult, Kassandra Adames MD 3. Oncology consult, Sharona Castro MD PROCEDURES PERFORMED DURING THIS HOSPITALIZATION: The patient underwent left frontal craniotomy for biopsy and resection of tumor by Dr. Roland Nguyen. HOSPITAL COURSE: This is a 61-year-old male with a past medical history of hypertension, hyperlipid emia, hypothyroidism, gastritis, parathyroidectomy, who was brought to the emergency room for altere d mentation. He was brought in by paramedics, and the patient was also noted to have some odd behav ior noted by his family members. His CT scan of the brain shows a nodular density with surrounding e alicia at the left frontal lobe, suspicious for a mass. It measures significant midline shift, no ass ociated blood collections. The patient was suspicious for possible glioblastoma multiforme brain tu mor. He was evaluated by Neurosurgery, Dr. Roland Nguyen, had oncology evaluation done by Dr. Debra Castro. The patient also had a colon mass noted on CT scan, for which he had a GI evaluation by Dr Galen Adames. He remained hemodynamically stable, subsequently followed up by neurosurgery, and t he patient underwent a left frontal craniotomy and resection of the tumor. As per Dr. Nguyen, more than 90% of the tumor has been resected. As per oncology, they recommended the patient to have out patient radiation therapy post surgery. He was initially started on IV Decadron, which was subseque ntly changed to oral Decadron 4 mg p.o. b.i.d. upon discharge. He was also given Keppra 750 mg p.o. b.i.d. for seizure prophylaxis by Dr. Roland Nguyen. The patient remained hemodynamically stable a fter getting a clearance from oncology, and set up for radiation therapy at [facility]. The patie nt is getting discharged to home today. DISPOSITION: To home. DISCHARGE CONDITION: Stable and improved compared to admission. DISCHARGE ACTIVITIES: As tolerated, slowly resume to the normal baseline activity. DISCHARGE DIET: Low-fat, low-sodium diet. DISCHARGE MEDICATIONS: As per medical reconciliation. He is given prescriptions of: 1. Keppra 750 mg p.o. b.i.d. 2. [place] p.r.n. pain. 3. Decadron 4 mg p.o. b.i.d. 4. Protonix 40 mg p.o. daily. DISCHARGE FOLLOWUP INSTRUCTIONS 1. The patient is to follow up with his own primary care doctor in 1-2 weeks after discharge. 2. The patient is to follow up with neurosurgery, Dr. Roland Nguyen, at outpatient clinic 1-2 weeks after discharge for staple removal. 3. The patient is to follow up with oncology, Dr. Sharona Castro, for his oncology call. 4. The patient is to follow up at the [facility] for radiation therapy post brain tumor resection . His has been explained about the discharge plan and followup instructions. She understood a nd verbalized understanding. Dictated By: MONTRELL EPSTEIN MD, KP/CIRILO Conf#: [id number] DID#: [id number]
== END 2016-10-25 12:55 | disposition home or self-care (01) | DRG 25 ==
LOC: E/R 22:25 → TEL 10-20 00:44 → MS2 10-21 21:00 → REC 10-23 08:07 → TEL 10-23 09:20 → MS2 10-25 01:20
PROVIDERS: ADMIT Internal Medicine; ATTEND Internal Medicine
PROC: 00B00ZX Excision of Brain, Open Approach, Diagnostic (ICD-10-PCS; 2016-10-22)
PROC: 00B00ZZ Excision of Brain, Open Approach (ICD-10-PCS; principal; 2016-10-22 14:30)
DX: C71.9 Malignant neoplasm of brain, unspecified (principal); G93.49 Other encephalopathy; G93.6 Cerebral edema; R65.10 Systemic inflammatory response syndrome (SIRS) of non-infectious origin without acute organ dysfunction; E03.9 Hypothyroidism, unspecified; R56.9 Unspecified convulsions; E87.6 Hypokalemia; R93.3 Abnormal findings on diagnostic imaging of other parts of digestive tract; Z87.891 Personal history of nicotine dependence; B95.7 Other staphylococcus as the cause of diseases classified elsewhere
CPT/HCPCS: 36415; 70450; 70551; 70552; 70553; 71010; 71260; 74177; 80048; 80053; 80202; 80306; 80307; 81003; 82962; 83605; 83735; 84100; 84443; 84484; 85025; 85610; 85730; 86850; 86900; 86901; 87040; 87086; 93005; 96374; 96375; 97162; 97165; C1713; J0330; J0690; J1100; J1644; J2710; J3010; J3370; J3480; J7030; J7050; Q9967